=== PATIENT | female | born 1960 | race Caucasian/White ===

== ENCOUNTER → 2019-08-06 08:48 | Outpatient (CLI) | payer OTHER, MEDICAID, SELFPAY ==
[2019-08-06 10:41] LABS: Add Manual Diff / Slide Review NO; Basophils Absolute Auto 0 /uL (0-100); Basophils Percent Auto 0.8 % (0-2); Eosinophils Absolute Auto 0 /uL (0-450); Hematocrit 37.3 % (36-46); Hemoglobin 12.5 g/dL (12.0-16.0); Lymphocytes Absolute Auto 1500 /uL (1100-4500); Mean Corpuscular HGB Conc 33.6 % (30-36); Mean Corpuscular Hemoglobin 29.6 PG (26-34); Monocytes Absolute Auto 400 /uL (0-900); Monocytes Percent Auto 9.2 % (3-14); Neutrophils Absolute Auto 2700 /uL (1500-7000); Platelet Count 207 X10^3/uL (150-400); Red Blood Cell Count 4.23 X10^6/uL (4.0-5.2); Red Cell Distribution Width 13.2 % (11.6-14.8); White Blood Cell Count 4.8 X10^3/uL (4.5-11.0)
[2019-08-06 11:15] LABS: Alanine Aminotransferase 38 IU/L (<35); Albumin 4.3 g/dL (3.5-5.0); Albumin Globulin Ratio 1.3 (1.0-2.8); Alkaline Phosphatase 70 U/L (38-126); Aspartate Aminotransferase 41 IU/L (14-36); BUN Creatinine Ratio 17.9 (6-22); Bilirubin Total 0.6 mg/dL (0.2-1.3); Blood Urea Nitrogen 14 mg/dL (7-17); Calcium 9.3 mg/dL (8.4-10.2); Carbon Dioxide 26 mmol/L (22-32); Chloride 107 mmol/L (98-107); Cholesterol 221 mg/dL (140-199); Estimated Glomerular Filt Rate > 60.0 mL/min (>60); Globulin 3.3 g/dL (1.7-4.1); Glucose 95 mg/dL (70-100); HDL Cholesterol 52 mg/dL (40-60); HEMOLYSIS < 15 (0-50); LDL Cholesterol Calculated 153 mg/dL (<100); Potassium 4.2 mmol/L (3.4-5.1); Sodium 140 mmol/L (137-145); Total Protein 7.6 g/dL (6.3-8.2); Triglycerides 81 mg/dL (35-150)
[2019-08-06 11:26] LABS: Free T4, Direct Thyroxine 1.24 ng/dL (0.78-2.19)
[2019-08-06 11:39] LABS: Thyroid Stimulating Hormone 2.13 uIU/mL (0.47-4.68)
== END ==
PROVIDERS: PCP Family Medicine; Referring Provider Family Medicine; Visit Provider Family Medicine
DX: Z13.1 Encounter for screening for diabetes mellitus (principal); Z13.220 Encounter for screening for lipoid disorders; Z82.49 Family history of ischemic heart disease and other diseases of the circulatory system; E66.3 Overweight; R53.83 Other fatigue
CPT/HCPCS: 36415; 80053; 80061; 84439; 84443; 84481; 85025

== ENCOUNTER → 2019-11-19 08:35 | Outpatient (CLI) | payer OTHER, MEDICAID, SELFPAY ==
[2019-11-19 10:19] LABS: Alanine Aminotransferase 17 IU/L (<35); Albumin 4.3 g/dL (3.5-5.0); Albumin Globulin Ratio 1.5 (1.0-2.8); Alkaline Phosphatase 72 U/L (38-126); Aspartate Aminotransferase 27 IU/L (14-36); BUN Creatinine Ratio 16.7 (6-22); Bilirubin Total 0.4 mg/dL (0.2-1.3); Blood Urea Nitrogen 12 mg/dL (7-17); Calcium 9.4 mg/dL (8.4-10.2); Carbon Dioxide 24 mmol/L (22-32); Chloride 106 mmol/L (98-107); Cholesterol 194 mg/dL (140-199); Estimated Glomerular Filt Rate > 60.0 mL/min (>60); Globulin 2.8 g/dL (1.7-4.1); Glucose 95 mg/dL (70-100); HDL Cholesterol 45 mg/dL (40-60); HEMOLYSIS < 15 (0-50); LDL Cholesterol Calculated 130 mg/dL (<100); Potassium 4.3 mmol/L (3.4-5.1); Sodium 138 mmol/L (137-145); Total Protein 7.1 g/dL (6.3-8.2); Triglycerides 96 mg/dL (35-150)
[2019-11-20 16:32] LABS: Hep C Virus Ab w/Reflex Quant NEGATIVE s/c (NEGATIVE)
== END ==
PROVIDERS: PCP Family Medicine; Referring Provider Family Medicine; Visit Provider Family Medicine
DX: E78.5 Hyperlipidemia, unspecified (principal); R79.89 Other specified abnormal findings of blood chemistry
CPT/HCPCS: 36415; 80053; 80061; 86803

== ENCOUNTER → 2020-05-25 10:51 | Outpatient (CLI) | payer OTHER, MEDICAID, SELFPAY ==
[2020-05-25] MEDS: COVID-19 VACC #1, MRNA(MOD) 100 MCG/0.5 ML VIAL IM (10:56)
== END ==
PROVIDERS: PCP Family Medicine; Visit Provider Internal Medicine
DX: Z23 Encounter for immunization (principal)
CPT/HCPCS: 0011A; 91301

== ENCOUNTER → 2020-06-22 10:52 | Outpatient (CLI) | payer OTHER, MEDICAID, SELFPAY ==
[2020-06-22] MEDS: COVID-19 VACC #2, MRNA(MOD) 100 MCG/0.5 ML VIAL IM (11:01)
== END ==
PROVIDERS: PCP Family Medicine; Visit Provider Internal Medicine
DX: Z23 Encounter for immunization (principal)
CPT/HCPCS: 0012A; 91301

== ENCOUNTER → 2020-10-07 09:04 | Outpatient (CLI) | payer OTHER, MEDICAID, SELFPAY ==
[2020-10-07 10:59] LABS: Alanine Aminotransferase 14 IU/L (<35); Albumin 4.4 g/dL (3.5-5.0); Albumin Globulin Ratio 1.5 (1.0-2.8); Alkaline Phosphatase 64 U/L (38-126); Aspartate Aminotransferase 27 IU/L (14-36); BUN Creatinine Ratio 18.1 (6-22); Bilirubin Total 0.4 mg/dL (0.2-1.3); Blood Urea Nitrogen 13 mg/dL (7-17); Calcium 9.5 mg/dL (8.4-10.2); Carbon Dioxide 26 mmol/L (22-32); Chloride 106 mmol/L (98-107); Cholesterol 202 mg/dL (140-199); Estimated Glomerular Filt Rate > 60.0 mL/min (>60); Globulin 2.9 g/dL (1.7-4.1); Glucose 93 mg/dL (80-110); HDL Cholesterol 66 mg/dL (40-60); HEMOLYSIS 19 (0-50); LDL Cholesterol Calculated 120 mg/dL (<100); Potassium 4.6 mmol/L (3.4-5.1); Sodium 140 mmol/L (137-145); Total Protein 7.3 g/dL (6.3-8.2); Triglycerides 78 mg/dL (35-150)
[2020-10-07 11:55] LABS: TSH w/ Reflex to FT4 0.65 uIU/mL (0.47-4.68)
== END ==
PROVIDERS: PCP Family Medicine; Referring Provider Family Medicine; Visit Provider Family Medicine
DX: E78.5 Hyperlipidemia, unspecified (principal); R79.89 Other specified abnormal findings of blood chemistry; Z13.29 Encounter for screening for other suspected endocrine disorder
CPT/HCPCS: 36415; 80053; 80061; 84443

== ENCOUNTER → 2020-10-15 10:14 | Outpatient (CLI) | payer OTHER, MEDICAID, SELFPAY ==
[2020-10-15 11:17] LABS: COVID19 -Nasal RAPID Negative (Negative)
== END ==
PROVIDERS: PCP Family Medicine; Visit Provider Surgery
DX: Z20.822 Contact with and (suspected) exposure to COVID-19 (principal)
CPT/HCPCS: 87635; C9803

== ENCOUNTER 2020-10-18 08:11 | Day surgery (SDC) | payer OTHER, MEDICAID, SELFPAY ==
[2020-10-18] VITALS (9 sets, daily range): BP systolic 109–122; BP diastolic 53–77; PULSE 66–84; RESP 12–17; TEMP 36.2–36.8; O2SAT 97–99; BMI 23.0
[2020-10-18] MEDS: LACTATED RINGERS 1,000 ML 200 ML IV (08:54)
--- NOTE | 2020-10-18 09:14 | PM.HP.1 ---
History of Present Illness History of Present Illness Date Patient Seen: 10/18/20 Time Patient Seen: 09:14 Chief complaint: SDC Narrative: The patient presents for colorectal sreening. Most recent colonoscopy was 5 years ago and significant for benign polyps. No personal or family history of colon cancer. On further history denies any recent gastrointestinal symptoms. No nausea, vomiting, abdominal pain, loss of appetite, unexplained weight loss, change in bowel habits, diarrhea, constipation, melena, hematochezia, or bright red blood per rectum. Patient History Medical History Chicken pox (~1967) Closed fracture of metatarsal of right foot (~2017) Depression History of endometrial biopsy (~12/2018) Overweight Plantar warts (~1971) Post-menopausal bleeding Surgical History H/O section (~1995) Family & Social History Family History Father History of heart disease Hypertension Loud snoring Restless leg Mother Hypertension Parkinson's disease Restless leg Brother Anal fistula Hypertension Sister Prediabetes Grandfather History of heart attack History of heart disease Hypertension Grandmother Suicide Grandfather History of heart attack Grandmother Breast cancer Family/Other Loud snoring Insomnia Obesity Hypertension Depression Anxiety Alcohol abuse Social History: household members family Tobacco & Substance use: Smoking Status Never smoker alcohol intake current alcohol intake frequency holiday/special occasion Substance Use Type does not use Meds Home Medications and Allergies Home Medications Medication Instructions Recorded Confirmed Type biotin 10,000 mcg disintegrating 10,000 mcg PO DAILY 09/11/19 10/18/20 History tablet hyaluronic acid PO 09/11/19 10/04/20 History mecobalamin (vitamin B12) 1,000 1,000 mcg PO DAILY 09/11/19 10/04/20 History mcg chewable tablet alprazolam 0.5 mg tablet 0.5 mg PO TID PRN #15 tab 11/26/19 10/18/20 Rx trazodone 50 mg tablet See Rx Instructions .ROUTE 09/10/20 10/18/20 Rx .COMPLEX #60 tab Allergies Allergy/AdvReac Type Severity Reaction Status Date / Time tetracycline AdvReac Intermediate Nausea Verified 10/18/20 08:29 Review of Systems Review of Systems ROS: Yes All systems reviewed with the patient and are negative except as otherwise documented Exam Vital Signs (past 8 hours): - 10/18/20 08:38 Temperature 97.2 F L Pulse Rate 66 Respiratory Rate 14 Blood Pressure 122/77 Pulse Oximetry 98 Oxygen Delivery Method Room Air Narrative Exam Narrative: GENERAL-well developed adult female, no acute distress HEENT-no scleral icterus, hearing intact NECK-no JVD, trachea midline CVS- regular rate, no peripheral edema RESP-unlabored respiratory effort, no audible wheezing GI-soft, nontender nondistended MSK-no cyanosis or clubbing, extremities without deformity SKIN-warm, dry NEURO-alert and oriented, no focal deficits PYSCH-Appropriate mood and affect Assessment & Plan Assessment & Plan narrative: The patient requires colorectal screening and colonoscopy is recommended. Technical details were discussed. Risks, benefits, alternatives explained. Risks including but not limited to myocardial infarction, aspiration, bleeding, pain, missed lesion, incomplete examination, need for further radiographic studies, colonic perforation, and need for major abdominal surgery were discussed. All questions were answered to their satisfaction, and they are in agreement with this plan.
[2020-10-18] MEDS: fentaNYL 250 MCG/5 ML INJ IV (09:29)
[2020-10-18] MEDS: MIDAZOLAM 5 MG/5 ML VIAL IV (09:29)
--- NOTE | 2020-10-18 09:47 | PM.OP.ENDO ---
Operative Date/Time/Diagnoses Date of procedure: 10/18/20 Time of procedure: 09:47 Pre-op diagnosis: Personal history of colonic polyps Post-op diagnosis: same Procedure & Clinicians Study performed: Colonoscopy Same procedure as scheduled: Yes Indications: Personal history of colonic polyps Surgeon: Dk Arias Procedure Notes Procedure in detail: Medications: Conscious sedation using 7mg IV midazolam and 200mcg IV of fentanyl The history and physical was performed/updated and the patient is ASA class is 2. The procedure was discussed in detail with the patient. Potential risks complications including infection, bleeding, missed diagnosis, perforation, need for surgery, and were explained. Their questions were answered and informed consent was obtained. Patient was brought to the procedure room and placed standard monitoring equipment. The patient's vital signs were monitored continuously throughout the entire procedure. Prior to starting time-out was performed. The patient was placed in the left lateral recumbent position. Procedural sedation was administered. Examination began with a thorough inspection of the perianal area there was no evidence of fissures, fistulae, external hemorrhoids or cutaneous malignancy. The colonoscopy scope was then placed into the anal canal and was advanced to the cecum, which was identified by the ileocecal valve, the appendiceal orifice and the confluence of the taenia. The scope was then slowly withdrawn examining colon thoroughly in all directions, irrigating it of any residual stool. 1. No masses or polyps 2. Grade 2 internal hemorrhoids The patient tolerated the procedure well. They will be discharged once criteria are met. The prep was of good/excellent quality. The withdrawl time was 6 minutes. The sedation time was 25 minutes. Specimen(s): none sent Complications: none Impression: Normal colonoscopy Post-procedure Recommendations: Colonscopy in 10 years Disposition: same day surgery
[2020-10-18] MEDS: ONDANSETRON 4 MG ODT SL (10:47)
--- NOTE | 2020-10-18 10:51 | SUR.PHASEII ---
Pt feeling some nausea prior to dc. Pt given cool cloth and order obtained for zofran odt by Dr Arias States feeling better. Ambulatory to wheelchair without difficulty and dc with tech escorting to family waiting at er entrance.
== END 2020-10-18 10:50 | disposition home or self-care (01) ==
PROVIDERS: PCP Family Medicine; Referring Provider Surgery; Visit Provider Surgery
PROC: 0DJD8ZZ Inspection of Lower Intestinal Tract, Via Natural or Artificial Opening Endoscopic (ICD-10-PCS; CPT 45378; principal; 2020-10-18 09:15)
DX: Z12.11 Encounter for screening for malignant neoplasm of colon (principal); Z86.010 Personal history of colon polyps; K64.1 Second degree hemorrhoids
CPT/HCPCS: 45378; 99152; J2250; J3010

== ENCOUNTER → 2020-12-01 14:50 | Outpatient (CLI) | payer OTHER, MEDICAID, SELFPAY ==
--- NOTE | 2020-12-01 14:51 | DI.MG.S_ITS ---
BILATERAL DIGITAL SCREENING MAMMOGRAM 3D/2D WITH CAD: 12/01/2020 CLINICAL: Routine screening. Comparison is made to exams dated: 01/04/2017 mammogram, 12/20/2015 mammogram, and 12/14/2014 mammogram - outside location. There are scattered fibroglandular elements in both breasts. Current study was also evaluated with a Computer Aided Detection (CAD) system. No significant masses, calcifications, or other findings are seen in either breast. There has been no significant interval change. IMPRESSION: NEGATIVE There is no mammographic evidence of malignancy. A 1 year screening mammogram is recommended. This exam was interpreted at Station ID: [id number]. NOTE: For mammograms, a report in lay terms will be sent to the patient. Approximately 15% of breast malignancies will not be visualized mammographically. In the management of a palpable breast mass, a negative mammogram must not discourage biopsy of a clinically suspicious lesion. Electronically Signed By: Mike Adamson M.D. at/oren:12/01/2020 15:24:00 letter sent: Normal Exam ACR BI-RADS Category 1: Negative 3341F
== END ==
PROVIDERS: PCP Family Medicine; Referring Provider Family Medicine; Visit Provider Family Medicine
DX: Z12.31 Encounter for screening mammogram for malignant neoplasm of breast (principal)
CPT/HCPCS: 77063; 77067

== ENCOUNTER → 2021-05-02 17:13 | Outpatient (CLI) | payer OTHER, MEDICAID, SELFPAY ==
[2021-05-02 19:54] LABS: COVID19 -Nasal RAPID Negative (Negative)
== END ==
PROVIDERS: PCP Family Medicine; Visit Provider Family Medicine
DX: Z20.822 Contact with and (suspected) exposure to COVID-19 (principal)
CPT/HCPCS: 87635

== ENCOUNTER 2021-10-12 08:13 | Outpatient (RCR) | payer OTHER, MEDICAID, SELFPAY ==
--- NOTE | 2021-10-12 15:10 | OT.OP.EVAL ---
Visit Care Team Role Provider Type Rohini Kaminski MD Attending Provider Physician Family Provider Primary Care Provider Referring Provider Specialty: Family Practice Address: [address] [place] [address], [address] Phone: Fax: Email: [email or web address] Initial Evaluation OT Outpatient Adult Evaluation Start: 10/12/21 14:47 Freq: Status: Active Protocol: Document 10/12/21 14:47 AMS (Rec: 10/12/21 15:09 AMS [id number]) General Information Visit Start Time 08:30 Visit Stop Time 09:15 Total Visit Minutes 45 Visit Number 1 Insurance Information [employer]; MAX 24 PT/OT combo Treatment Setting Outpatient Care Note Type Initial Evaluation Referring Physician Rohini Kaminski MD Reason for Referral B CTS Identification Confirmed Yes Identification Confirmed By Patient Goals Treatment HEP/Education. Assessment/Plan Treatment Assessment Patient is a 61 year-old right hand dominant female referred to outpatient OT by PCP secondary to bilateral CTS. Medical history is significant for back and neck pain. 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 Ellen reports writing 2 to 4 hours per day utilizing personal laptop (no separate keyboard; use of touch pad for mouse work) while seated in various locations around the home (in bed, seated at couch and/or in chairs). She reports taking anti inflammatory medications if 'pain is really bad'. She denied consistent use of heat, ice and/or contrast baths. She indicated 4 to 5 out of 10 on the Pain Scale relative to distal R UE. She obtained a QuickDASH UE Outcome Measure Score = 22.73 and a QuickDASH Work Module Score = 56.25. She invested in personal [id number] wrist brace that she has been wearing primarily when writing . Denial of wearing of splint/ brace at night. Denial of waking up from pain/discomfort /symptoms. (+) Tinel sign R; report of tingling in fingers of R hand only. No report of symptoms in the left hand. Bilateral wrist AROM WNL. (+) tenderness palpated R CMC > L; (+) bilateral thumb adductor tightness (R > L). Focus of evaluation and treatment on education and HEP development; instructed in wrist stretches (w/ focus on wrist/digit flexors stretch), tendon glides, median nerve glide, self-myofascial release (thumb adductor/carpal ligament). Visual instructions provided for self-myofascial releases and tendon glides. Education/ discussion re: modifications to laptop set-up (including use of slant surface), positioning of wrist/hand at night, use of heat/cold packs, importance of breaks and completing stretches/exercises . Ellen denied need for additional treatment sessions. Thus, recommend d/c at this time. Patient Recommendations Discharge from Occupational Therapy
== END 2021-10-13 09:46 ==
LOC: OT 08:13
PROVIDERS: Family Provider Family Medicine; PCP Family Medicine; Referring Provider Family Medicine; Visit Provider Family Medicine
DX: G56.03 Carpal tunnel syndrome, bilateral upper limbs (principal)
CPT/HCPCS: 97110; 97165

== ENCOUNTER → 2021-12-19 11:46 | Outpatient (CLI) | payer OTHER, MEDICAID, SELFPAY ==
--- NOTE | 2021-12-19 11:49 | DI.MG.S_ITS ---
BILATERAL DIGITAL SCREENING MAMMOGRAM 3D/2D WITH CAD: 12/19/2021 CLINICAL: Routine screening. Family history of breast cancer. Comparison is made to exams dated: 12/01/2020 mammogram - [facility] and 01/04/2017 mammogram - outside location. There are scattered fibroglandular elements in both breasts. Current study was also evaluated with a Computer Aided Detection (CAD) system. No significant masses, calcifications, or other findings are seen in either breast. There has been no significant interval change. IMPRESSION: NEGATIVE There is no mammographic evidence of malignancy. A 1 year screening mammogram is recommended. Based on the Tyrer Cuzick model (a risk assessment model) the patient's lifetime risk is 10.6% and her 10 year risk is 4.5%. According to the ACR, ACS, and NCCN guidelines, an annual breast MRI exam along with mammogram is recommended if the patient's lifetime risk is 20% or greater. This exam was interpreted at Station ID: [id number]. NOTE: For mammograms, a report in lay terms will be sent to the patient. Approximately 15% of breast malignancies will not be visualized mammographically. In the management of a palpable breast mass, a negative mammogram must not discourage biopsy of a clinically suspicious lesion. Electronically Signed By: Coleman somers/oren:12/19/2021 15:40:39 letter sent: Normal Exam ACR BI-RADS Category 1: Negative 3341F
== END ==
PROVIDERS: Family Provider Family Medicine; PCP Pediatrics; Referring Provider Pediatrics; Visit Provider Pediatrics
DX: Z12.31 Encounter for screening mammogram for malignant neoplasm of breast (principal); Z80.3 Family history of malignant neoplasm of breast
CPT/HCPCS: 77063; 77067

== ENCOUNTER → 2022-03-18 10:56 | Outpatient (CLI) | payer OTHER, MEDICAID, SELFPAY | PROVIDERS: Family Provider Family Medicine; PCP Pediatrics; Visit Provider Registered Nurse | DX: N39.0 Urinary tract infection, site not specified (principal) | CPT/HCPCS: 81002; 87077; 87086; 87186 ==

== ENCOUNTER → 2022-05-29 08:52 | Outpatient (CLI) | payer OTHER, MEDICAID, SELFPAY ==
[2022-05-29 10:13] LABS: Add Manual Diff / Slide Review NO; Basophils Absolute Auto 0 /uL (0-100); Basophils Percent Auto 0.9 % (0-2); Eosinophils Absolute Auto 0 /uL (0-450); Eosinophils Percent Auto 0.6 % (2-4); Hematocrit 39.9 % (36-46); Hemoglobin 13.1 g/dL (12.0-16.0); Lymphocytes Absolute Auto 1500 /uL (1100-4500); Lymphocytes Percent Auto 32.5 % (25-40); Mean Corpuscular HGB Conc 32.9 % (30-36); Mean Corpuscular Hemoglobin 29.4 PG (26-34); Mean Corpuscular Volume 89.6 fL (80-100); Monocytes Absolute Auto 400 /uL (0-900); Monocytes Percent Auto 9.2 % (3-14); Neutrophils Absolute Auto 2700 /uL (1500-7000); Neutrophils Percent Auto 56.8 % (50-75); Platelet Count 225 X10^3/uL (150-400); Red Blood Cell Count 4.45 X10^6/uL (4.0-5.2); Red Cell Distribution Width 13.8 % (11.6-14.8); White Blood Cell Count 4.7 X10^3/uL (4.5-11.0)
[2022-05-29 10:23] LABS: Hemoglobin A1C% w Est Avg Glu 5.4 % (4.0-6.0)
[2022-05-29 10:54] LABS: Alanine Aminotransferase 18 IU/L (<35); Albumin 4.3 g/dL (3.5-5.0); Albumin Globulin Ratio 1.5 (1.0-2.8); Alkaline Phosphatase 60 U/L (38-126); Aspartate Aminotransferase 25 IU/L (14-36); BUN Creatinine Ratio 15.7 (6-22); Bilirubin Total 0.4 mg/dL (0.2-1.3); Blood Urea Nitrogen 11 mg/dL (7-17); Calcium 9.2 mg/dL (8.4-10.2); Carbon Dioxide 28 mmol/L (22-32); Chloride 104 mmol/L (98-107); Cholesterol 204 mg/dL (140-199); Estimated Glomerular Filt Rate > 60 mL/min (>60); Globulin 2.8 g/dL (1.7-4.1); Glucose 83 mg/dL (80-110); HDL Cholesterol 67 mg/dL (40-60); HEMOLYSIS 19 (0-50); LDL Cholesterol Calculated 108 mg/dL (<100); Potassium 4.2 mmol/L (3.4-5.1); Sodium 137 mmol/L (137-145); Total Protein 7.1 g/dL (6.3-8.2); Triglycerides 144 mg/dL (35-150)
== END ==
PROVIDERS: Family Provider Family Medicine; PCP Family Medicine; Referring Provider Family Medicine; Visit Provider Family Medicine
DX: E78.5 Hyperlipidemia, unspecified (principal); H02.409 Unspecified ptosis of unspecified eyelid; Z13.1 Encounter for screening for diabetes mellitus; Z13.6 Encounter for screening for cardiovascular disorders
CPT/HCPCS: 36415; 80053; 80061; 83036; 84443; 85025

== ENCOUNTER → 2022-08-04 11:02 | Outpatient (CLI) | payer OTHER, MEDICAID, SELFPAY | PROVIDERS: Family Provider Family Medicine; PCP Family Medicine; Visit Provider Nurse Practitioner Family | DX: R30.0 Dysuria (principal) | CPT/HCPCS: 81002; 87077; 87086; 87186; 87210 ==

== ENCOUNTER → 2023-01-25 15:46 | Outpatient (CLI) | payer OTHER, MEDICAID, SELFPAY ==
--- NOTE | 2023-01-25 | DI.MG.S_ITS ---
BILATERAL DIGITAL SCREENING MAMMOGRAM 3D/2D WITH CAD: 01/25/2023 CLINICAL: Routine screening. Family history of breast cancer. Comparison is made to exams dated: 12/19/2021 mammogram, 12/01/2020 mammogram - [facility], and 01/04/2017 mammogram - outside location. There are scattered areas of fibroglandular density in both breasts (category b / 25%-50% glandular tissue). Current study was also evaluated with a Computer Aided Detection (CAD) system. No significant masses, calcifications, or other findings are seen in either breast. There has been no significant interval change. IMPRESSION: NEGATIVE There is no mammographic evidence of malignancy. A 1 year screening mammogram is recommended. Based on the Tyrer Cuzick model (a risk assessment model) the patient's lifetime risk is 10.4% and her 10 year risk is 4.5%. According to the ACR, ACS, and NCCN guidelines, an annual breast MRI exam along with mammogram is recommended if the patient's lifetime risk is 20% or greater. This exam was interpreted at Station ID: [id number]. NOTE: For mammograms, a report in lay terms will be sent to the patient. Approximately 15% of breast malignancies will not be visualized mammographically. In the management of a palpable breast mass, a negative mammogram must not discourage biopsy of a clinically suspicious lesion. Electronically Signed By: Edward zeng/oren:01/26/2023 08:14:53 letter sent: Normal Exam ACR BI-RADS Category 1: Negative 3341F
== END ==
PROVIDERS: Family Provider Family Medicine; PCP Family Medicine; Referring Provider Family Medicine; Visit Provider Family Medicine
DX: Z12.31 Encounter for screening mammogram for malignant neoplasm of breast (principal); Z80.3 Family history of malignant neoplasm of breast
CPT/HCPCS: 77063; 77067

== ENCOUNTER → 2023-05-18 11:47 | Outpatient (CLI) | payer OTHER, MEDICAID, SELFPAY ==
[2023-05-18 13:23] LABS: Alanine Aminotransferase 15 IU/L (<35); Albumin 4.5 g/dL (3.5-5.0); Albumin Globulin Ratio 1.5 (1.0-2.8); Alkaline Phosphatase 61 U/L (38-126); Aspartate Aminotransferase 24 IU/L (14-36); BUN Creatinine Ratio 14.7 (6-22); Bilirubin Total 0.6 mg/dL (0.2-1.3); Blood Urea Nitrogen 11 mg/dL (7-17); Calcium 9.8 mg/dL (8.4-10.2); Carbon Dioxide 26 mmol/L (22-32); Chloride 102 mmol/L (98-107); Cholesterol 191 mg/dL (140-199); Estimated Glomerular Filt Rate > 60 mL/min (>60); Glucose 81 mg/dL (80-110); HDL Cholesterol 60 mg/dL (40-60); HEMOLYSIS < 15 (0-50); LDL Cholesterol Calculated 116 mg/dL (<100); Potassium 4.2 mmol/L (3.4-5.1); Sodium 136 mmol/L (137-145); Total Protein 7.5 g/dL (6.3-8.2); Triglycerides 77 mg/dL (35-150)
[2023-05-21 15:55] LABS: HIV 1 & 2 Ab/Ag 4th Gen Combo NEGATIVE (NEGATIVE)
== END ==
PROVIDERS: Family Provider Family Medicine; PCP Family Medicine; Referring Provider Family Medicine; Visit Provider Family Medicine
DX: E78.5 Hyperlipidemia, unspecified (principal); Z11.4 Encounter for screening for human immunodeficiency virus [HIV]
CPT/HCPCS: 36415; 80053; 80061; 87389

== ENCOUNTER → 2023-06-05 13:34 | Outpatient (CLI) | payer OTHER, MEDICAID, SELFPAY ==
[2023-06-05 15:58] LABS: Thyroid Stimulating Hormone 1.01 uIU/mL (0.47-4.68)
== END ==
PROVIDERS: Family Provider Family Medicine; PCP Family Medicine; Referring Provider Family Medicine; Visit Provider Family Medicine
DX: R79.89 Other specified abnormal findings of blood chemistry (principal)
CPT/HCPCS: 36415; 84443

== ENCOUNTER 2024-01-23 09:46 | Emergency (ER) | payer OTHER, MEDICAID, SELFPAY ==
[2024-01-23 09:48] VITALS: BP 174/87; PULSE 74; RESP 30; TEMP 36.6; O2SAT 99; BMI 25.3
--- NOTE | 2024-01-23 09:48 | EKG_ITS ---
[address] [address] Test Date: 2024-01-23 Pat Name: Ramandeep Agarwal Department: [facility] Room: Gender: Female [employer] Teacher: LEXY : 1960 Requested By: Order Number: [id number] Reading MD: Edis Moise MD Measurements Intervals [place] Rate: 71 P: 70 GA: 136 QRS: 72 QRSD: 78 T: 69 QT: 378 QTc: 410 Interpretive Statements Normal sinus rhythm Electronically Signed On 01-24-2024 8:25:04 PDT by Edis Moise MD
[2024-01-23 09:51] VITALS: BP 174/87; PULSE 80; RESP 27; O2SAT 97
[2024-01-23 10:00] VITALS: BP 150/78; PULSE 68; RESP 25; O2SAT 100
--- NOTE | 2024-01-23 10:09 | ED.CHESTPAIN ---
HPI - Chest Pain General Chief Complaint: Chest Pain Stated Complaint: SOB/ something going on with her Heart Time Seen by Provider: 01/23/24 10:03 Source: patient Mode of arrival: Family Vehicle Limitations: no limitations History of Present Illness HPI narrative: Otherwise healthy 63-year-old woman and a routine visit with her primary care physician and had received bilateral cortisone injections to both hips was feeling well but is should be in to walk out of the clinic noticed a ?whooshing? feeling in her heart that she states did not feel like a palpitation. [place] a bit lightheaded and generally unwell, she went to sit in her car for just a moment the feeling worsened and she decided to come to the ER for further evaluation. At this point she is feeling somewhat better she is lying supine. She had a cup of coffee this morning but no other liquids or calories. No recent fevers, nausea, vomiting, chest pain, exertional dyspnea, lower extremity edema, headaches Related Data Home Medications Medication Instructions Recorded Confirmed biotin 10,000 mcg disintegrating 10,000 mcg PO DAILY 09/11/19 01/23/24 tablet hyaluronic acid PO 09/11/19 01/23/24 mecobalamin (vitamin B12) 1,000 1,000 mcg PO DAILY 09/11/19 01/23/24 mcg chewable tablet viatmin d3 PO 05/29/22 01/23/24 minoxidil 2.5 mg tablet 1.25 mg PO DAILY 08/03/23 01/23/24 Previous Rx's Medication Instructions Recorded alprazolam 0.5 mg tablet 0.5 mg PO TID PRN anxiety #30 tabs 05/08/23 bupropion HCl 150 mg 24 hr tablet, 150 mg PO DAILY #90 tabs 05/08/23 extended release semaglutide 1 mg/dose (4 mg/3 mL) See Rx Instructions SUBCUT QWEEK 05/08/23 subcutaneous pen injector #3 mL estradiol 0.01% (0.1 mg/gram) See Rx Instructions vaginal 08/03/23 vaginal cream (Estrace) .COMPLEX #42.5 grams trazodone 50 mg tablet See Rx Instructions .Route 12/10/23 .COMPLEX #90 tabs Allergies Allergy/AdvReac Type Severity Reaction Status Date / Time tetracycline AdvReac Intermediate Nausea Verified 01/23/24 09:10 Review of Systems Review of Systems Narrative: Pertinent positive and negative findings as per HPI Patient History Medical History Hyperlipidemia Overweight Elevated LFTs Closed fracture of metatarsal of right foot (~2017) Plantar warts (~1971) Chicken pox (~1967) Depression Post-menopausal bleeding History of endometrial biopsy (~12/2018) Surgical History H/O section (~1995) Family History Father History of heart disease Hypertension Loud snoring Restless leg Mother Hypertension Parkinson's disease Restless leg Brother Anal fistula Hypertension Sister Prediabetes Grandfather History of heart attack History of heart disease Hypertension Grandmother Suicide Grandfather History of heart attack Grandmother Breast cancer Family/Other Loud snoring Insomnia Obesity Hypertension Depression Anxiety Alcohol abuse Social History household members: family Smoking Status: Never smoker alcohol intake: current Smoking Status: Never smoker alcohol intake frequency: holidays/special occasions only Substance Use Type: does not use Exam Initial Vital Signs Initial Vital Signs: Vital Signs Temperature 97.9 F 01/23/24 09:48 Pulse Rate 74 01/23/24 09:48 Respiratory Rate 30 H 01/23/24 09:48 Blood Pressure 174/87 H 01/23/24 09:48 Pulse Oximetry 99 01/23/24 09:48 Oxygen Delivery Method Room Air 01/23/24 09:48 General: Healthy appearing, in no acute distress. Able to give a complete and coherent history. Well-nourished well-developed HEENT: Moist mucous membranes, normal sclera with reactive pupils, Neck: No JVD, supple Respiratory: Lungs are clear to auscultation, no wheezing no rales no rhonchi. Full and symmetrical air movement Cardiac: Regular rate and rhythm no murmurs no bruits Abdomen: Soft, nontender, good bowel tones, no flank pain Skin: Warm and dry, no rashes Neurologic: Grossly neurologically intact with no obvious asymmetries or abnormalities Extremities: No trauma, well perfused Psych: Cooperative, appropriate insight and affect Course Orders Ordered: ED Orders 01/23/24 09:48 EKG-12 Lead Stat 01/23/24 10:12 Complete Blood Count AUTO DIFF Stat Comprehensive Metabolic Panel Stat Lipase Stat Magnesium Stat NT-proBNP (BNP-Adult 18+) Stat Troponin & CK Cardiac Panel Stat 01/23/24 10:17 XR chest 1V Stat Discontinued Medications Sodium Chloride (Normal Saline 0.9%) 1,000 mls @ 1,000 mls/hr IV BOLUS ONE Stop: 01/23/24 11:16 Last Admin: 01/23/24 10:50 Dose: 1,000 mls/hr Documented By: RIVAS Vital Signs Vital signs: Vital Signs - 8 hr 01/23/24 09:48 01/23/24 09:51 01/23/24 10:00 Temperature 97.9 F Pulse Rate 74 80 68 Respiratory Rate 30 H 27 H 25 H Blood Pressure 174/87 H 174/87 H 150/78 H Pulse Oximetry 99 97 100 Oxygen Delivery Method Room Air 01/23/24 10:30 01/23/24 11:00 Temperature Pulse Rate 75 75 Respiratory Rate 20 20 Blood Pressure 145/70 H 131/72 Pulse Oximetry 100 98 Oxygen Delivery Method Room Air MDM - Chest Pain Lab Data 01/23/24 10:12 01/23/24 10:12 Labs: Lab Results 01/23/24 Range/Units 10:12 WBC 6.1 (4.5-11.0) X10^3/uL RBC 4.45 (4.0-5.2) X10^6/uL Hgb 13.3 (12.0-16.0) g/dL Hct 39.0 (36-46) % MCV 87.8 (80-100) fL MCH 29.9 (26-34) PG MCHC 34.0 (30-36) % RDW 12.9 (11.6-14.8) % Plt Count 240 (150-400) X10^3/uL Neut % (Auto) 59.9 (50-75) % Lymph % (Auto) 27.3 (25-40) % [place] % (Auto) 10.5 (3-14) % Eos % (Auto) 1.1 L (2-4) % Baso % (Auto) 1.2 (0-2) % Neut # (Auto) 3700 (7697-4891) /uL Lymph # (Auto) 1700 (2330-1708) /uL [place] # (Auto) 600 (0-900) /uL Eos # (Auto) 100 (0-450) /uL Baso # (Auto) 100 (0-100) /uL Sodium 136 L (137-145) mmol/L Potassium 4.6 (3.4-5.1) mmol/L Chloride 104 (98-107) mmol/L Carbon Dioxide 26 (22-32) mmol/L BUN 18 H (7-17) mg/dL Creatinine 0.76 (0.52-1.04) mg/dL Estimated GFR > 60 (>60) mL/min BUN/Creatinine Ratio 23.7 H (6-22) Glucose 92 (80-110) mg/dL Calcium 9.6 (8.4-10.2) mg/dL Magnesium 2.1 (1.6-2.3) mg/dL Total Bilirubin 0.8 (0.2-1.3) mg/dL AST 38 H (14-36) IU/L ALT 25 (<35) IU/L Alkaline Phosphatase 56 (38-126) U/L Total Creatine Kinase 61 (30-135) U/L Troponin I < 0.012 (0.01-0.034) ng/mL NT-Pro-B Natriuret Pep 61 (<125) pg/mL Total Protein 7.8 (6.3-8.2) g/dL Albumin 4.4 (3.5-5.0) g/dL Globulin 3.4 (1.7-4.1) g/dL Albumin/Globulin Ratio 1.3 (1.0-2.8) Lipase 126 (23-300) U/L MDM Narrative Medical decision making narrative: CC: Unsteady, whishing sensation in her heart shortly after bilateral cortisone injection in her hips Data collected from: patient Social determinants of health that may influence the patients condition: Medical records reviewed: Notes from visit prior to coming to the ER reviewed. She received Kenalog without epinephrine Differential considered: Vasovagal syncope, palpitations, cardiac event, viral syndrome Exam documented above, pertinent findings include: Exam is entirely benign Lab Test results independently reviewed as above. Pertinent findings: CBC is unremarkable Chemistries are reassuring Troponin is undetectable Independently reviewed EKG: Sinus rhythm at a rate of 71. No acute ischemic changes Imaging studies independently reviewed: Chest x-ray is unremarkable Treatments: A L of fluid Discussion: Patient is feeling much better. I suspect that the woozy/wooshing sensation that she experienced was moderate vasovagal response after the bilateral steroid hip injections. Labs are reassuring no evidence of acute coronary disease she is feeling better after a L of fluid. At this point there was no indication for additional imaging blood work or hospital admission. Questions are answered and she is safe for discharge Discharge Plan Departure Patient Disposition: Home Clinical Impression: Vasovagal near syncope Instructions: DI for Syncope in Adults (Fainting) Activity Restrictions/Additional Instructions: Thank you for coming in today Your blood work was entirely reassuring. There was no evidence of infection, kidney problems, electrolyte abnormalities, abnormal heart rhythms or heart attack like syndromes. I suspect the sensation that you experienced is called a vasovagal response and related to the injections that you received. This is temporary, not a sign of anything more sinister or something to worry about in the future and is completely self-limited. I would encourage you to go home and have some lunch and enjoy the rest of your day. If you find that you are getting worse or develop any new symptoms, please feel free to return to the emergency department for further evaluation. Prescriptions: No Action biotin 10,000 mcg tablet,disintegrating 10,000 mcg PO DAILY mecobalamin (vitamin B12) 1,000 mcg tablet,chewable 1,000 mcg PO DAILY hyaluronic acid PO trazodone 50 mg tablet See Rx Instructions .ROUTE .COMPLEX Qty: 90 11RF Dose Instruction: TAKE 1 TO 2 TABLETS AT BEDTIME Rx Instructions: TAKE 1 TO 2 TABLETS AT BEDTIME alprazolam 0.5 mg tablet 0.5 mg PO TID PRN (Reason: anxiety) Qty: 30 0RF bupropion HCl 150 mg tablet extended release 24 hr 150 mg PO DAILY Qty: 90 3RF semaglutide 1 mg/dose (4 mg/3 mL) pen injector See Rx Instructions SUBCUT QWEEK Qty: 3 0RF Rx Instructions: 60 units weekly through [facility] viatmin d3 PO minoxidil 2.5 mg tablet 1.25 mg PO DAILY estradiol [Estrace] 0.01 % (0.1 mg/gram) cream See Rx Instructions vaginal .COMPLEX Qty: 42.5 11RF Rx Instructions: 500 mg intravaginally for 2 weeks, then 500 mg twice per week intravaginally for 1 to 2 weeks, then gradually reduce to 1/2 the initial dose twice per week. Referrals: Tino Day DO [Primary Care Provider] - Stand Alone Forms: Patient Portal/API
--- NOTE | 2024-01-23 10:17 | DI.RAD.S_ITS ---
PROCEDURE: XR CHEST 1V INDICATIONS: chest pain TECHNIQUE: One view of the chest was acquired. COMPARISON: None. FINDINGS: Surgical changes and devices: None. Lungs and pleura: Lungs are clear. No pleural effusions or pneumothorax. Mediastinum: Mediastinal contours appear normal. Heart size is normal. Bones and chest wall: No suspicious bony lesions. Overlying soft tissues appear unremarkable. IMPRESSION: No acute cardiopulmonary abnormality is seen. Dictated by: Juan Diego Otto M.D. on 01/23/2024 at 10:41 Approved by: Juan Dieog Otto M.D. on 01/23/2024 at 10:41
[2024-01-23 10:24] LABS: Add Manual Diff / Slide Review NO; Basophils Absolute Auto 100 /uL (0-100); Basophils Percent Auto 1.2 % (0-2); Eosinophils Absolute Auto 100 /uL (0-450); Eosinophils Percent Auto 1.1 % (2-4); Hemoglobin 13.3 g/dL (12.0-16.0); Lymphocytes Absolute Auto 1700 /uL (1100-4500); Lymphocytes Percent Auto 27.3 % (25-40); Mean Corpuscular Hemoglobin 29.9 PG (26-34); Mean Corpuscular Volume 87.8 fL (80-100); Monocytes Absolute Auto 600 /uL (0-900); Monocytes Percent Auto 10.5 % (3-14); Neutrophils Absolute Auto 3700 /uL (1500-7000); Neutrophils Percent Auto 59.9 % (50-75); Platelet Count 240 X10^3/uL (150-400); Red Blood Cell Count 4.45 X10^6/uL (4.0-5.2); Red Cell Distribution Width 12.9 % (11.6-14.8); White Blood Cell Count 6.1 X10^3/uL (4.5-11.0)
[2024-01-23 10:30] VITALS: BP 145/70; PULSE 75; RESP 20; O2SAT 100
[2024-01-23 10:30] LABS: Alanine Aminotransferase 25 IU/L (<35); Albumin 4.4 g/dL (3.5-5.0); Albumin Globulin Ratio 1.3 (1.0-2.8); Alkaline Phosphatase 56 U/L (38-126); Aspartate Aminotransferase 38 IU/L (14-36); BUN Creatinine Ratio 23.7 (6-22); Bilirubin Total 0.8 mg/dL (0.2-1.3); Blood Urea Nitrogen 18 mg/dL (7-17); Calcium 9.6 mg/dL (8.4-10.2); Carbon Dioxide 26 mmol/L (22-32); Chloride 104 mmol/L (98-107); Creatine Kinase 61 U/L (30-135); Estimated Glomerular Filt Rate > 60 mL/min (>60); Globulin 3.4 g/dL (1.7-4.1); Glucose 92 mg/dL (80-110); Lipase 126 U/L (23-300); Magnesium 2.1 mg/dL (1.6-2.3); Potassium 4.6 mmol/L (3.4-5.1); Sodium 136 mmol/L (137-145); Total Protein 7.8 g/dL (6.3-8.2)
[2024-01-23 10:31] LABS: HEMOLYSIS 112 (0-50)
[2024-01-23 10:42] LABS: NT-proBNP (BNP-Adult 18+) 61 pg/mL (<125); Troponin I < 0.012 ng/mL (0.01-0.034)
[2024-01-23] MEDS: SODIUM CHLORIDE 0.9% 1,000 ML 1000 ML IV (10:50)
[2024-01-23 11:00] VITALS: BP 131/72; PULSE 75; RESP 20; O2SAT 98
[2024-01-23 11:30] VITALS: BP 138/69; PULSE 79; RESP 22; O2SAT 98
== END 2024-01-23 11:54 | disposition home or self-care (01) ==
PROVIDERS: Emergency Provider Emergency Medicine; Family Provider Family Medicine; PCP Family Medicine
DX: R55 Syncope and collapse (principal); R07.9 Chest pain, unspecified; R42 Dizziness and giddiness
CPT/HCPCS: 36415; 71045; 80053; 82550; 83690; 83735; 83880; 84484; 85025; 93005; 93010; 96360; 99284

== ENCOUNTER → 2024-01-29 15:58 | Outpatient (CLI) | payer OTHER, MEDICAID, SELFPAY ==
--- NOTE | 2024-01-29 15:58 | DI.MG.S_ITS ---
BILATERAL DIGITAL SCREENING MAMMOGRAM 3D/2D WITH CAD: 01/29/2024 CLINICAL: Routine screening. Comparison is made to exams dated: 01/25/2023 mammogram, 12/19/2021 mammogram, and 12/01/2020 mammogram - [facility]. There are scattered areas of fibroglandular density (category b / 25%-50% glandular tissue). Current study was also evaluated with a Computer Aided Detection (CAD) system. No significant masses, calcifications, or other findings are seen in either breast. There has been no significant interval change. IMPRESSION: NEGATIVE There is no mammographic evidence of malignancy. A 1 year screening mammogram is recommended. Based on the Tyrer Cuzick model (a risk assessment model) the patient's lifetime risk is 10.1% and her 10 year risk is 4.5%. According to the ACR, ACS, and NCCN guidelines, an annual breast MRI exam along with mammogram is recommended if the patient's lifetime risk is 20% or greater. This exam was interpreted at Station ID: [id number]. NOTE: For mammograms, a report in lay terms will be sent to the patient. Approximately 15% of breast malignancies will not be visualized mammographically. In the management of a palpable breast mass, a negative mammogram must not discourage biopsy of a clinically suspicious lesion. Electronically Signed By: Isabel grewal/oren:01/30/2024 12:01:48 letter sent: Normal Exam ACR BI-RADS Category 1: Negative
== END ==
PROVIDERS: Family Provider Family Medicine; PCP Family Medicine; Referring Provider Family Medicine; Visit Provider Family Medicine
DX: Z12.31 Encounter for screening mammogram for malignant neoplasm of breast (principal)
CPT/HCPCS: 77063; 77067

== ENCOUNTER → 2024-02-25 13:16 | Outpatient (CLI) | payer OTHER, MEDICAID, SELFPAY | PROVIDERS: Family Provider Family Medicine; PCP Family Medicine; Referring Provider Family Medicine; Visit Provider Family Medicine | DX: R00.2 Palpitations (principal) | CPT/HCPCS: 93246; 93248 ==

== ENCOUNTER → 2024-06-18 10:54 | Outpatient (CLI) | payer OTHER, SELFPAY ==
--- NOTE | 2024-06-18 10:56 | DI.RAD.S_ITS ---
PROCEDURE: XR HIP W PEL IF DONE ALEX MIN 4V INDICATIONS: pain TECHNIQUE: AP pelvis with lateral view(s) of both hip(s). COMPARISON: None. FINDINGS: Bones: Left L5 transverse process is elongated and irregular. This is likely chronic and insignificant SI and hip joints: Normal in width and alignment without arthritic change Soft tissues: No soft tissue swelling, calcification or mass. IMPRESSION: Normal pelvis Dictated by: Edis Hahn M.D. on 06/19/2024 at 11:34 Approved by: Edis Hahn M.D. on 06/19/2024 at 11:35
== END ==
PROVIDERS: Family Provider Family Medicine; PCP Family Medicine; Referring Provider Family Medicine; Visit Provider Family Medicine
DX: M25.551 Pain in right hip (principal); M25.552 Pain in left hip
CPT/HCPCS: 73521

== ENCOUNTER 2024-10-29 11:30 | Outpatient (RCR) | payer OTHER, SELFPAY ==
--- NOTE | 2024-07-21 16:00 | PT.OTN ---
Current Diagnoses Pain in right hip (07/21/24) Pain in left hip (07/21/24) Physical Therapy Treatment Note PT-OP-A Visit Information Start: 07/21/24 15:56 Freq: Status: Active Protocol: Document 07/21/24 15:15 DCW (Rec: 07/21/24 16:06 DCW [id number]) Out-Patient Physical Therapy Visit Information Visit Information Visit Type Initial Evaluation Visit Start Time 15:15 Visit Stop Time 15:50 Visit Number 1 Number of PHOTOENGRAVING PRINTER Visits 0 Evaluation Information Evaluation Date 07/21/24 PT-OP-B Current Condition Start: 07/21/24 15:56 Freq: Status: Active Protocol: Document 07/21/24 15:15 DCW (Rec: 07/21/24 16:06 DCW [id number]) Current Condition History of Current Condition Onset Date Multi-year history Current Complaints Lateral hip pain, L>R History of Current Condition Pt is a 64 year old female presenting with a multi-year history of bilateral hip pain. Pt notes pain is very point specific on both hips, points to lateral hip just off Greater Tubercle. Notes that she has been getting cortisone injections for a few years, the last one being this past December, but it did not last , and she noted reduced effect compared to prior injections. Pt notes that her pain has been steadily worsening since December. Worst when attempting to sleep while on her side, but getting into/out of her car, getting up from sitting, and stairs all increase discomfort. feels like she has started walking funny to compensate. Has not found anything that helps with her pain. Prior Treatments and Tests Hip X-ray: IMPRESSION: Normal pelvis Evaristo Campos on 06/19/2024 PT-OP-C Subjective Start: 07/21/24 15:56 Freq: Status: Active Protocol: Document 07/21/24 15:15 DCW (Rec: 07/21/24 16:06 DC [id number]) OP-PT Subjective Patient Comments Patient Comments I'm still doing dance class and yoga. There are a few stretches in yoga that I avoid , but I can do most of it without pain. Patient Reported Progress Improving PT-OP-F Manual Assessment Start: 07/21/24 15:56 Freq: Status: Active Protocol: Document 07/21/24 15:15 DCW (Rec: 07/22/24 09:55 DCW [id number]) Manual Assessments Soft Tissue Assessment Soft Tissue Mobility Assessment Bilateral point-specific pain over GT Bursae, along with tenderness to palpation 3/4: wincing and withdraw along bilateral ITB Joint Mobility Assessment Joint Mobility Assessment Very good passive hip mobility bilaterally PT-OP-L Special Tests Start: 07/21/24 15:56 Freq: Status: Active Protocol: Document 07/21/24 15:15 DCW (Rec: 07/22/24 09:55 DCW [id number]) Special Tests Hip Special Tests Straight Leg Raise Test Results Negative Scour Test Test Results Negative Piriformis Test Results Negative FARHAN Test Results Negative Knee Special Tests Rock's Test Test Results Positive bilaterally PT-OP-M Strength Start: 07/21/24 15:56 Freq: Status: Active Protocol: Document 07/21/24 15:15 DCW (Rec: 07/22/24 09:55 DCW [id number]) Hip Strength Hip Manual Muscle Testing Right Flexion (L2) 5 Normal Abduction 4- Good- Adduction 5 Normal External Rotation 5 Normal Internal Rotation 4 Good Comments Pain with resisted abduction and internal rotation Left Flexion (L2) 5 Normal Abduction 3+ Fair+ Adduction 5 Normal External Rotation 5 Normal Internal Rotation 4- Good- Comments Pain with resisted abduction and internal rotation PT-OP-Q Treatments Start: 07/21/24 15:56 Freq: Status: Active Protocol: Document 07/21/24 15:15 DCW (Rec: 07/21/24 16:06 DCW [id number]) Therapeutic Exercises Supine Exercises ITB Supine Exercise Name Supine ITB stretch Side bilateral Standing Exercises ITB Standing Exercise Name Standing ITB stretch Side bilateral PT-OP-T Assessment and Plan Start: 07/21/24 15:56 Freq: Status: Active Protocol: Document 07/21/24 15:15 DCW (Rec: 07/22/24 09:55 DCW [id number]) Physical Therapy Assessment Rehab Potential Rehabilitation Potential Good Evaluation Complexity Number of Personal Factors/Comorbidities 0 Number of Body Systems Impaired 4 or More Clinical Presentation at Evaluation Evolving Impairments Impairments Functional Activities, Functional Mobility,Pain,Soft Tissue Mobility,Strength,Tone Goals Three Impairment Pt unable to fully participate in yoga class due to hip pain Infectious Disease Technician Goal (LTG) Pt to indicate that she is able to tolerate all stretches through her yoga class for four sessions in order to demonstrate return to prior functional level. LTG Duration 10/21/24 Two Impairment Pain limits pt's sleep on majority of nights Infectious Disease Technician Goal (LTG) Pt to report ability to sleep through the night unrestricted by hip pain on at least five nights a week. LTG Duration 10/21/24 One Impairment Pt does not have an appropriate home exercise program Short Term Goal (STG) Pt to be independent and compliant with an appropriate HEP STG Duration 08/21/24 Assessment Summary Assessment Pt presents with signs and symptoms consistent with referring diagnosis. Pt point- specific tenderness bilaterally and involvement of ITB may indicate inflammation of GT bursae. Main limitations involve bringing her hip from extension to flexion, with things like into /out of car and stairs. Pt will likely benefit from skilled therapy focusing on decreasing pain and inflammation, improving hip strength, returning gait to WNL, and returning to prior level of function. Additionally, may also benefit from Iontophoresis with Dexamethasone (10 mg/mL) to assist in decreasing inflammation. Physical Therapy Plan Frequency and Duration Frequency of Treatment 2x/Week Plan of Care Start Date 07/21/24 Plan of Care End Date 09/20/24 Therapeutic Interventions Therapeutic Interventions Gait Training,Home Exercise Program,Joint Mobilizations, Manual Therapy,Neuromuscular Re-education,Patient/Caregiver Education,Self-Care/Home Management,Soft Tissue Mobilization,Taping, Therapeutic Activities, Therapeutic Exercises Modalities Cold Pack/Ice Massage,Hot Packs,Iontophoresis,Ultrasound Other Therapeutic Interventions Iontophoresis /c Dexamethasone 10 mg/mL Next Visit Focus/Plan Next Note Type Treatment Note Next Visit Plan STM, Hip strengthening, Ionto, K-tape if no Ionto
--- NOTE | 2024-07-24 16:09 | PT.OTN ---
Current Diagnoses Pain in right hip (07/24/24) Pain in left hip (07/24/24) Physical Therapy Treatment Note PT-OP-A Visit Information Start: 07/21/24 15:56 Freq: Status: Active Protocol: Document 07/24/24 15:15 DCW (Rec: 07/24/24 16:05 DCW [id number]) Out-Patient Physical Therapy Visit Information Visit Information Visit Type Treatment Note Visit Start Time 15:15 Visit Stop Time 15:50 Visit Number 2 Number of MASON FOREMAN/SUPERINTENDANT Visits 0 Evaluation Information Evaluation Date 07/21/24 PT-OP-B Current Condition Start: 07/21/24 15:56 Freq: Status: Active Protocol: Document 07/21/24 15:15 DCW (Rec: 07/21/24 16:06 DCW [id number]) Current Condition History of Current Condition Onset Date Multi-year history Current Complaints Lateral hip pain, L>R History of Current Condition Pt is a 64 year old female presenting with a multi-year history of bilateral hip pain. Pt notes pain is very point specific on both hips, points to lateral hip just off Greater Tubercle. Notes that she has been getting cortisone injections for a few years, the last one being this past December, but it did not last , and she noted reduced effect compared to prior injections. Pt notes that her pain has been steadily worsening since December. Worst when attempting to sleep while on her side, but getting into/out of her car, getting up from sitting, and stairs all increase discomfort. feels like she has started walking funny to compensate. Has not found anything that helps with her pain. Prior Treatments and Tests Hip X-ray: IMPRESSION: Normal pelvis Evaristo Campos on 06/19/2024 PT-OP-C Subjective Start: 07/21/24 15:56 Freq: Status: Active Protocol: Document 07/24/24 15:15 DCW (Rec: 07/24/24 16:05 [facility] [id number]) OP-PT Subjective Patient Comments Patient Comments I feel like I want to stretch harder. PT-OP-F Manual Assessment Start: 07/21/24 15:56 Freq: Status: Active Protocol: Document 07/21/24 15:15 DCW (Rec: 07/22/24 09:55 DCW [id number]) Manual Assessments Soft Tissue Assessment Soft Tissue Mobility Assessment Bilateral point-specific pain over GT Bursae, along with tenderness to palpation 3/4: wincing and withdraw along bilateral ITB Joint Mobility Assessment Joint Mobility Assessment Very good passive hip mobility bilaterally PT-OP-L Special Tests Start: 07/21/24 15:56 Freq: Status: Active Protocol: Document 07/21/24 15:15 DCW (Rec: 07/22/24 09:55 DCW [id number]) Special Tests Hip Special Tests Straight Leg Raise Test Results Negative Scour Test Test Results Negative Piriformis Test Results Negative FARHAN Test Results Negative Knee Special Tests Rokc's Test Test Results Positive bilaterally PT-OP-M Strength Start: 07/21/24 15:56 Freq: Status: Active Protocol: Document 07/21/24 15:15 DCW (Rec: 07/22/24 09:55 DCW [id number]) Hip Strength Hip Manual Muscle Testing Right Flexion (L2) 5 Normal Abduction 4- Good- Adduction 5 Normal External Rotation 5 Normal Internal Rotation 4 Good Comments Pain with resisted abduction and internal rotation Left Flexion (L2) 5 Normal Abduction 3+ Fair+ Adduction 5 Normal External Rotation 5 Normal Internal Rotation 4- Good- Comments Pain with resisted abduction and internal rotation PT-OP-Q Treatments Start: 07/21/24 15:56 Freq: Status: Active Protocol: Document 07/24/24 15:15 DCW (Rec: 07/24/24 16:05 DCW [id number]) Therapeutic Exercises Sidelying Exercises Hip Abduction Sidelying Exercise Name Hip Abduction Side bilateral Reverse Clamshell Sidelying Exercise Name Reverse Clamshell Side bilateral Clamshell Sidelying Exercise Name Clamshell Side bilateral Sitting Exercises ITB Stretch Sitting Exercise Name Figure-4 with over-pressure on knee Side bilateral Standing Exercises Hip Extension Standing Exercise Name Hip Extension Side bilateral Resistance [place] Hip Hiking Standing Exercise Name Hip Hiking Side bilateral Equipment Used 6 step Other Exercises Resisted Ambulation Other Exercise Name Resisted Side-stepping Resistance [place] BOSU Lunge Other Exercise Name BOSU Lunge Side bilateral Equipment Used Blue BOSU PT-OP-R Modalities Start: 07/24/24 16:05 Freq: Status: Active Protocol: Document 07/24/24 15:15 DCW (Rec: 07/24/24 16:07 DCW [id number]) Iontophoresis Treatment Left Lateral Hip Treatment Medication Dexamethasone (-) Medication Amount (mL) (ml) 1.0 Medication Dosage 10 mg/mL Treatment Polarity Negative to Negative Active Electrode Placement Left GT Bursa Dispersive Electrode Placement Lateral thigh distal to active electrode PT-OP-T Assessment and Plan Start: 07/21/24 15:56 Freq: Status: Active Protocol: Document 07/24/24 15:15 DCW (Rec: 07/24/24 16:05 DCW [id number]) Physical Therapy Assessment Impairments Impairments Functional Activities, Functional Mobility,Pain,Soft Tissue Mobility,Strength,Tone Goals Three Impairment Pt unable to fully participate in yoga class due to hip pain Dictating Machine Mechanic Goal (LTG) Pt to indicate that she is able to tolerate all stretches through her yoga class for four sessions in order to demonstrate return to prior functional level. LTG Duration 10/21/24 Two Impairment Pain limits pt's sleep on majority of nights Residential Goal (LTG) Pt to report ability to sleep through the night unrestricted by hip pain on at least five nights a week. LTG Duration 10/21/24 One Impairment Pt does not have an appropriate home exercise program Short Term Goal (STG) Pt to be independent and compliant with an appropriate HEP STG Duration 08/21/24 Assessment Summary Assessment Trial of Ionto on left GT bursa to test effectiveness, pt to report back next week. If it helped, will try bilaterally. Pt tolerated treatment well, good response to strengthening, tried to limit irritation of ITB and bursae. Physical Therapy Plan Frequency and Duration Frequency of Treatment 2x/Week Plan of Care Start Date 07/21/24 Plan of Care End Date 09/20/24 Therapeutic Interventions Therapeutic Interventions Gait Training,Home Exercise Program,Joint Mobilizations, Manual Therapy,Neuromuscular Re-education,Patient/Caregiver Education,Self-Care/Home Management,Soft Tissue Mobilization,Taping, Therapeutic Activities, Therapeutic Exercises Modalities Cold Pack/Ice Massage,Hot Packs,Iontophoresis,Ultrasound Other Therapeutic Interventions Iontophoresis /c Dexamethasone 10 mg/mL Next Visit Focus/Plan Next Note Type Treatment Note Next Visit Plan STM, Hip strengthening, Ionto
--- NOTE | 2024-07-28 12:15 | PT.OTN ---
Current Diagnoses Pain in right hip (07/28/24) Pain in left hip (07/28/24) Physical Therapy Treatment Note PT-OP-A Visit Information Start: 07/21/24 15:56 Freq: Status: Active Protocol: Document 07/28/24 11:32 SP (Rec: 07/28/24 12:24 SP [id number]) Out-Patient Physical Therapy Visit Information Visit Information Visit Type Treatment Note Visit Start Time 11:32 Visit Stop Time 12:15 Visit Number 3 Number of STRATEGIC PLANNING CONSULTANT Visits 1 Evaluation Information Evaluation Date 07/21/24 PT-OP-B Current Condition Start: 07/21/24 15:56 Freq: Status: Active Protocol: Document 07/21/24 15:15 DCW (Rec: 07/21/24 16:06 DCW [id number]) Current Condition History of Current Condition Onset Date Multi-year history Current Complaints Lateral hip pain, L>R History of Current Condition Pt is a 64 year old female presenting with a multi-year history of bilateral hip pain. Pt notes pain is very point specific on both hips, points to lateral hip just off Greater Tubercle. Notes that she has been getting cortisone injections for a few years, the last one being this past December, but it did not last , and she noted reduced effect compared to prior injections. Pt notes that her pain has been steadily worsening since December. Worst when attempting to sleep while on her side, but getting into/out of her car, getting up from sitting, and stairs all increase discomfort. feels like she has started walking funny to compensate. Has not found anything that helps with her pain. Prior Treatments and Tests Hip X-ray: IMPRESSION: Normal pelvis Evaristo Campos on 06/19/2024 PT-OP-C Subjective Start: 07/21/24 15:56 Freq: Status: Active Protocol: Document 07/28/24 11:32 SP (Rec: 07/28/24 12:24 SP [id number]) OP-PT Subjective Patient Comments Patient Comments Pt reports her L hip bothering her. She felt fine after last tx, thinks Ionto helped with pain, did have some red speckling on skin but didn't bother her, removed patch at 4 hrs. PT-OP-F Manual Assessment Start: 07/21/24 15:56 Freq: Status: Active Protocol: Document 07/21/24 15:15 DCW (Rec: 07/22/24 09:55 DCW [id number]) Manual Assessments Soft Tissue Assessment Soft Tissue Mobility Assessment Bilateral point-specific pain over GT Bursae, along with tenderness to palpation 3/4: wincing and withdraw along bilateral ITB Joint Mobility Assessment Joint Mobility Assessment Very good passive hip mobility bilaterally PT-OP-L Special Tests Start: 07/21/24 15:56 Freq: Status: Active Protocol: Document 07/21/24 15:15 DCW (Rec: 07/22/24 09:55 DCW [id number]) Special Tests Hip Special Tests Straight Leg Raise Test Results Negative Scour Test Test Results Negative Piriformis Test Results Negative FARHAN Test Results Negative Knee Special Tests Rock's Test Test Results Positive bilaterally PT-OP-M Strength Start: 07/21/24 15:56 Freq: Status: Active Protocol: Document 07/21/24 15:15 DCW (Rec: 07/22/24 09:55 DCW [id number]) Hip Strength Hip Manual Muscle Testing Right Flexion (L2) 5 Normal Abduction 4- Good- Adduction 5 Normal External Rotation 5 Normal Internal Rotation 4 Good Comments Pain with resisted abduction and internal rotation Left Flexion (L2) 5 Normal Abduction 3+ Fair+ Adduction 5 Normal External Rotation 5 Normal Internal Rotation 4- Good- Comments Pain with resisted abduction and internal rotation PT-OP-Q Treatments Start: 07/21/24 15:56 Freq: Status: Active Protocol: Document 07/28/24 11:32 SP (Rec: 07/28/24 12:24 SP [id number]) Therapeutic Exercises Supine Exercises HS stretch Supine Exercise Name added to HEP with HO Side bilateral Equipment Used strap Reps/Minutes 30 SH Piriformis Stretch Supine Exercise Name added to HEP with HO Side bilateral Reps/Minutes 30 Sh ITB Supine Exercise Name Supine ITB stretch Side bilateral Equipment Used wtih strap Reps/Minutes 30 SH Sidelying Exercises Hip Abduction Sidelying Exercise Name Hip Abduction- HEP reviewed Side bilateral Resistance AROM (TB next tx) Reps/Minutes x10 Comments cued stacked trunk/hip alignment, DF neutral, leg alignment Reverse Clamshell Sidelying Exercise Name Reverse Clamshell - HEP reviewed Side bilateral Resistance AROM (TB next tx) Reps/Minutes x10 Comments cued slow eccentric return Clamshell Sidelying Exercise Name Clamshell Side bilateral Resistance AROM (TB next tx) Reps/Minutes x10 Comments good self correction stacked alignment lift/lower, slow pacing Manual Therapy Treatment Soft Tissue Mobilization Hips Body Location L glut med, max, PF, TFL Comments STMs and MWM hip ER/IR, ed self ball on wall Joint Mobilizations Hip Joint L Comments anteromedial and posterolateral and inferior glide with strap support- good gentle stretch in jt response . Self-Care/Home Management Treatment Education Patient Education Body Mechanics,Joint Protection,Pain Management Other Education Time spent sleeping, starts on R then moves alot back, R/ L what ever helps comfort. Is able to sleep 7-8hrs uses pillows between BLEs. PT-OP-R Modalities Start: 07/24/24 16:05 Freq: Status: Active Protocol: Document 07/28/24 11:32 SP (Rec: 07/28/24 12:24 SP [id number]) Iontophoresis Treatment Left Lateral Hip Treatment Medication Dexamethasone (-) Medication Amount (mL) (ml) 1.0 Medication Dosage 10 mg/mL Treatment Polarity Negative to Negative Active Electrode Placement Left GT Bursa Dispersive Electrode Placement Lateral thigh distal to active electrode Patient Tolerance Good, noted speckle redness from previous tx PT-OP-T Assessment and Plan Start: 07/21/24 15:56 Freq: Status: Active Protocol: Document 07/28/24 11:32 SP (Rec: 07/28/24 12:24 SP [id number]) Physical Therapy Assessment Goals Three Impairment Pt unable to fully participate in yoga class due to hip pain Care Home Goal (LTG) Pt to indicate that she is able to tolerate all stretches through her yoga class for four sessions in order to demonstrate return to prior functional level. LTG Duration 10/21/24 Two Impairment Pain limits pt's sleep on majority of nights Supervisor Mail Carriers Goal (LTG) Pt to report ability to sleep through the night unrestricted by hip pain on at least five nights a week. LTG Duration 10/21/24 One Impairment Pt does not have an appropriate home exercise program Short Term Goal (STG) Pt to be independent and compliant with an appropriate HEP STG Duration 08/21/24 Assessment Summary Assessment Pt reports some steadily pain L hip during R LE mobiltiy HEP in [place]. Good response to stretching and self STM review post manual end using tennis ball on wall. Provided HOs for carryover set up and recall support per pt request. Physical Therapy Plan Frequency and Duration Frequency of Treatment 2x/Week Plan of Care Start Date 07/21/24 Plan of Care End Date 09/20/24 Therapeutic Interventions Therapeutic Interventions Gait Training,Home Exercise Program,Joint Mobilizations, Manual Therapy,Neuromuscular Re-education,Patient/Caregiver Education,Self-Care/Home Management,Soft Tissue Mobilization,Taping, Therapeutic Activities, Therapeutic Exercises Modalities Cold Pack/Ice Massage,Hot Packs,Iontophoresis,Ultrasound Other Therapeutic Interventions Iontophoresis /c Dexamethasone 10 mg/mL Next Visit Focus/Plan Next Note Type Treatment Note Next Visit Plan Recheck HEP. PROgress standing , POC: STM, Hip strengthening, Ionto
--- NOTE | 2024-07-30 12:18 | PT.OTN ---
Current Diagnoses Pain in right hip (07/30/24) Pain in left hip (07/30/24) Physical Therapy Treatment Note PT-OP-A Visit Information Start: 07/21/24 15:56 Freq: Status: Active Protocol: Document 07/30/24 11:34 SP (Rec: 07/30/24 12:31 SP [id number]) Out-Patient Physical Therapy Visit Information Visit Information Visit Type Treatment Note Visit Start Time 11:34 Visit Stop Time 12:18 Visit Number 4 Number of BOTTLE BLOWING MACHINE TENDER Visits 2 Evaluation Information Evaluation Date 07/21/24 PT-OP-B Current Condition Start: 07/21/24 15:56 Freq: Status: Active Protocol: Document 07/21/24 15:15 DCW (Rec: 07/21/24 16:06 DCW [id number]) Current Condition History of Current Condition Onset Date Multi-year history Current Complaints Lateral hip pain, L>R History of Current Condition Pt is a 64 year old female presenting with a multi-year history of bilateral hip pain. Pt notes pain is very point specific on both hips, points to lateral hip just off Greater Tubercle. Notes that she has been getting cortisone injections for a few years, the last one being this past December, but it did not last , and she noted reduced effect compared to prior injections. Pt notes that her pain has been steadily worsening since December. Worst when attempting to sleep while on her side, but getting into/out of her car, getting up from sitting, and stairs all increase discomfort. feels like she has started walking funny to compensate. Has not found anything that helps with her pain. Prior Treatments and Tests Hip X-ray: IMPRESSION: Normal pelvis Evaristo Campos on 06/19/2024 PT-OP-C Subjective Start: 07/21/24 15:56 Freq: Status: Active Protocol: Document 07/30/24 11:34 SP (Rec: 07/30/24 12:31 SP [id number]) OP-PT Subjective Patient Comments Patient Comments She reports her hips were sore after PT last tx. She reports hardest sidelying abduction causing pain. Noted little rolling ball tissue over L greater trochanter at arrival sensitive to STMs. She stated tried Nabeel Stretch but bed isn't elevated enough,no stretch. Pt reported wanted to continue iontophoresis helps L hip pain. PT-OP-F Manual Assessment Start: 07/21/24 15:56 Freq: Status: Active Protocol: Document 07/21/24 15:15 DCW (Rec: 07/22/24 09:55 DCW [id number]) Manual Assessments Soft Tissue Assessment Soft Tissue Mobility Assessment Bilateral point-specific pain over GT Bursae, along with tenderness to palpation 3/4: wincing and withdraw along bilateral ITB Joint Mobility Assessment Joint Mobility Assessment Very good passive hip mobility bilaterally PT-OP-L Special Tests Start: 07/21/24 15:56 Freq: Status: Active Protocol: Document 07/21/24 15:15 DCW (Rec: 07/22/24 09:55 DCW [id number]) Special Tests Hip Special Tests Straight Leg Raise Test Results Negative Scour Test Test Results Negative Piriformis Test Results Negative FARHAN Test Results Negative Knee Special Tests Rock's Test Test Results Positive bilaterally PT-OP-M Strength Start: 07/21/24 15:56 Freq: Status: Active Protocol: Document 07/21/24 15:15 DCW (Rec: 07/22/24 09:55 DCW [id number]) Hip Strength Hip Manual Muscle Testing Right Flexion (L2) 5 Normal Abduction 4- Good- Adduction 5 Normal External Rotation 5 Normal Internal Rotation 4 Good Comments Pain with resisted abduction and internal rotation Left Flexion (L2) 5 Normal Abduction 3+ Fair+ Adduction 5 Normal External Rotation 5 Normal Internal Rotation 4- Good- Comments Pain with resisted abduction and internal rotation PT-OP-Q Treatments Start: 07/21/24 15:56 Freq: Status: Active Protocol: Document 07/30/24 11:34 SP (Rec: 07/30/24 12:31 SP [id number]) Therapeutic Exercises Sidelying Exercises Hip Abduction Sidelying Exercise Name Hip Abduction- HEP reviewed Side bilateral Resistance AROM (check if can add TB next tx) Equipment Used pillow between knees Reps/Minutes x10 Comments cued stacked trunk/hip alignment, DF neutral, leg alignment Reverse Clamshell Sidelying Exercise Name Reverse Clamshell - HEP reviewed Side bilateral Resistance AROM (check if can add TB next tx) Equipment Used pillow between knees Reps/Minutes x10 Comments cued slow eccentric return Clamshell Sidelying Exercise Name Clamshell Side bilateral Resistance AROM (check if can add TB next tx) Equipment Used pillow between knees Reps/Minutes x10 Comments good self correction stacked alignment lift/lower, slow pacing Sitting Exercises ITB Stretch Sitting Exercise Name Figure-4 with gentle over- pressure on knee Side bilateral Reps/Minutes 30 Sh x2 Comments hip ER Standing Exercises Hip Abduction Standing Exercise Name added to HEP declined HO Side bilateral Resistance TB #2 teal at ankles Equipment Used rail support BUE Reps/Minutes 10 Comments cued tall midline posture Hip Extension Standing Exercise Name Hip Extension Side bilateral Resistance Tb #2 teal at ankles Equipment Used rail support BUE Reps/Minutes 10 reps Comments improved postural correction Other Exercises 1/2 knee hip flexor stretch Other Exercise Name trialed vs Nabeel Stretch- added with HO Side bilateral Reps/Minutes 30 SH with OH reach Comments fwd vs added L hip IR to get to TFL Resisted Ambulation Other Exercise Name Resisted Side-stepping- HEP Resistance Green loop> TB #2 teal at ankles Reps/Minutes 10 ft x2 laps Comments improved no UE support and decreased LB compensations, cued TA Self-Care/Home Management Treatment Education Patient Education Safety Other Education Ed anatomy of hip what muscles are on L hip sore, noted small dime size moving ball under skin. Discussed if worsens talk to Dr but can just be fatty tissue roling. Not on R at palpation. Noted raised slotches about size of 1/2 dollar today, instructed adverse affect to iontophoresis are not continuing til skin heals. PT-OP-R Modalities Start: 07/24/24 16:05 Freq: Status: Active Protocol: Document 07/30/24 11:34 SP (Rec: 07/30/24 12:31 SP [id number]) Iontophoresis Treatment Left Lateral Hip Patient Tolerance unable raised splotches over L lateral hip, itchy- pt not recall previous PT-OP-T Assessment and Plan Start: 07/21/24 15:56 Freq: Status: Active Protocol: Document 07/30/24 11:34 SP (Rec: 07/30/24 12:31 SP [id number]) Physical Therapy Assessment Goals Three Impairment Pt unable to fully participate in yoga class due to hip pain [facility] Goal (LTG) Pt to indicate that she is able to tolerate all stretches through her yoga class for four sessions in order to demonstrate return to prior functional level. LTG Duration 10/21/24 Two Impairment Pain limits pt's sleep on majority of nights Fundraising Specialist Goal (LTG) Pt to report ability to sleep through the night unrestricted by hip pain on at least five nights a week. LTG Duration 10/21/24 One Impairment Pt does not have an appropriate home exercise program Short Term Goal (STG) Pt to be independent and compliant with an appropriate HEP STG Duration 08/21/24 Assessment Summary Assessment Pt improved no pain duirng modification of SL HEP use pillow between BLEs, cues stacked alignment. Progressed standing hip abd and 1/2 kneel hip flexor stretch today with good response. Decreased band tension TB #2 with noted decreased to no trunk and LS compensations during ex. Pt had adverse red splotches where Deximethesone patch was on L lateral hip, pt was wondering why was itchy and didn't recall redness. BOTTLE BLOWING MACHINE TENDER educated was rest speckled dots on skin last tx from iontophoresis 2 tx ago. Educated skin is reacting to tx so are not reapplying til healed normal color texture, and might not beneficial in future. Pt verbalized understanding, she did remove patch but didn't realize redness was adverse affect regardless of what was instructed, like the pain support reduction benefits it provided. Physical Therapy Plan Frequency and Duration Frequency of Treatment 2x/Week Plan of Care Start Date 07/21/24 Plan of Care End Date 09/20/24 Therapeutic Interventions Therapeutic Interventions Gait Training,Home Exercise Program,Joint Mobilizations, Manual Therapy,Neuromuscular Re-education,Patient/Caregiver Education,Self-Care/Home Management,Soft Tissue Mobilization,Taping, Therapeutic Activities, Therapeutic Exercises Modalities Cold Pack/Ice Massage,Hot Packs,Iontophoresis,Ultrasound Other Therapeutic Interventions Iontophoresis /c Dexamethasone 10 mg/mL Next Visit Focus/Plan Next Note Type Treatment Note Next Visit Plan Recheck L hip for skin healing from iontophoresis adverse affect. Recheck HEP resisted HEP standing POC: STM, Hip strengthening, Ionto
--- NOTE | 2024-08-06 11:28 | PT.OTN ---
Current Diagnoses Pain in right hip (08/06/24) Pain in left hip (08/06/24) Physical Therapy Treatment Note PT-OP-A Visit Information Start: 07/21/24 15:56 Freq: Status: Active Protocol: Document 08/06/24 10:48 SP (Rec: 08/06/24 11:49 SP Laptop) Out-Patient Physical Therapy Visit Information Visit Information Visit Type Treatment Note Visit Start Time 10:48 Visit Stop Time 11:28 Visit Number 5 Number of NEWS VIDEOTAPE EDITOR Visits 3 Evaluation Information Evaluation Date 07/21/24 PT-OP-B Current Condition Start: 07/21/24 15:56 Freq: Status: Active Protocol: Document 07/21/24 15:15 DCW (Rec: 07/21/24 16:06 DCW [id number]) Current Condition History of Current Condition Onset Date Multi-year history Current Complaints Lateral hip pain, L>R History of Current Condition Pt is a 64 year old female presenting with a multi-year history of bilateral hip pain. Pt notes pain is very point specific on both hips, points to lateral hip just off Greater Tubercle. Notes that she has been getting cortisone injections for a few years, the last one being this past December, but it did not last , and she noted reduced effect compared to prior injections. Pt notes that her pain has been steadily worsening since December. Worst when attempting to sleep while on her side, but getting into/out of her car, getting up from sitting, and stairs all increase discomfort. feels like she has started walking funny to compensate. Has not found anything that helps with her pain. Prior Treatments and Tests Hip X-ray: IMPRESSION: Normal pelvis Edis Hahn M.D . on 06/19/2024 PT-OP-C Subjective Start: 07/21/24 15:56 Freq: Status: Active Protocol: Document 08/06/24 10:48 SP (Rec: 08/06/24 11:49 SP Laptop) OP-PT Subjective Patient Comments Patient Comments Pt reports compliant with HEP and can do her HEP better on yoga mat than PT table. She reports the raised swelling from the dexamethasone previous 2 treatments ago has shown some little improvement since 2 previous tx ago, discussed will discontinue use , pt disappointed because helped with pain but understands the adverse affect . PT-OP-F Manual Assessment Start: 07/21/24 15:56 Freq: Status: Active Protocol: Document 07/21/24 15:15 DCW (Rec: 07/22/24 09:55 DCW [id number]) Manual Assessments Soft Tissue Assessment Soft Tissue Mobility Assessment Bilateral point-specific pain over GT Bursae, along with tenderness to palpation 3/4: wincing and withdraw along bilateral ITB Joint Mobility Assessment Joint Mobility Assessment Very good passive hip mobility bilaterally PT-OP-L Special Tests Start: 07/21/24 15:56 Freq: Status: Active Protocol: Document 07/21/24 15:15 DCW (Rec: 07/22/24 09:55 DCW [id number]) Special Tests Hip Special Tests Straight Leg Raise Test Results Negative Scour Test Test Results Negative Piriformis Test Results Negative FARHAN Test Results Negative Knee Special Tests Rock's Test Test Results Positive bilaterally PT-OP-M Strength Start: 07/21/24 15:56 Freq: Status: Active Protocol: Document 07/21/24 15:15 DCW (Rec: 07/22/24 09:55 DCW [id number]) Hip Strength Hip Manual Muscle Testing Right Flexion (L2) 5 Normal Abduction 4- Good- Adduction 5 Normal External Rotation 5 Normal Internal Rotation 4 Good Comments Pain with resisted abduction and internal rotation Left Flexion (L2) 5 Normal Abduction 3+ Fair+ Adduction 5 Normal External Rotation 5 Normal Internal Rotation 4- Good- Comments Pain with resisted abduction and internal rotation PT-OP-Q Treatments Start: 07/21/24 15:56 Freq: Status: Active Protocol: Document 08/06/24 10:48 SP (Rec: 08/06/24 11:49 SP Laptop) Therapeutic Exercises Sidelying Exercises Hip Abduction Sidelying Exercise Name Hip Abduction- HEP reviewed Side bilateral Resistance AROM (add TB next tx) Equipment Used no pillows needed Reps/Minutes x10 Comments cued stacked trunk/hip alignment, DF neutral, leg alignment Reverse Clamshell Sidelying Exercise Name Reverse Clamshell - HEP reviewed Side bilateral Resistance AROM> TB #1 light blue Equipment Used no pillow needed Reps/Minutes x10 Comments cued slow eccentric return Clamshell Sidelying Exercise Name Clamshell Side bilateral Resistance AROM> teal #2 (stated will do L3 home has) Equipment Used no pillow needed Reps/Minutes x10 Comments good self correction stacked alignment lift/lower, slow pacing Standing Exercises Stationary lunge Standing Exercise Name initiated declined HO Side bilateral Resistance AROM Reps/Minutes x10 Comments contact table- discussed perform during day sitting for strength& mob Hip Abduction Standing Exercise Name Hip Abduction- Reviewed declined HO Side bilateral Resistance TB #2 teal at ankles Equipment Used rail support light BUE Reps/Minutes 10 Comments Improved tall midline posture Hip Extension Standing Exercise Name Hip Extension- reviewed declined HO Side bilateral Resistance Tb #2 teal at ankles Equipment Used rail support light BUE Reps/Minutes 10 reps Comments improved postural correction Hip Hiking Standing Exercise Name Hip Hiking Side bilateral Equipment Used 6 step, light rail support Reps/Minutes x20 each side Comments good hip abd tiring reported Other Exercises 1/2 knee hip flexor stretch Other Exercise Name reviewed Side bilateral Reps/Minutes 30 SH with OH reach Comments fwd vs added L hip IR to get to TFL Resisted Ambulation Other Exercise Name Resisted Forward, Backward and Side-stepping- HEP Resistance Green loop ([place])- at ankles Reps/Minutes 10 ft x3 laps each direction Comments Improved trunk alignment, foot clearance, cued allow TA and trunk mobility BOSU Lunge Other Exercise Name BOSU Lunge Side bilateral Equipment Used Blue BOSU Manual Therapy Treatment Consent Patient gave verbal consent for manual Yes treatment Soft Tissue Mobilization Hips Body Location L glut med, max, PF, TFL Comments STMs and MWM hip ER/IR, ed self ball on wall Joint Mobilizations Hip Joint L Comments posterolateral and inferior glide with strap support- good gentle stretch in jt response . Self-Care/Home Management Treatment Education Patient Education Body Mechanics,Joint Protection,Pain Management, Safety Other Education Ed not sit to long and perform HEP during day for strength and mobility support. verbalized understanding. PT-OP-R Modalities Start: 07/24/24 16:05 Freq: Status: Active Protocol: Document 08/06/24 10:48 SP (Rec: 08/06/24 11:49 SP Laptop) Iontophoresis Treatment Left Lateral Hip Treatment Medication DC 07/30/24 PT-OP-T Assessment and Plan Start: 07/21/24 15:56 Freq: Status: Active Protocol: Document 08/06/24 10:48 SP (Rec: 08/06/24 11:49 SP Laptop) Physical Therapy Assessment Goals Three Impairment Pt unable to fully participate in yoga class due to hip pain Analytics Associate Goal (LTG) Pt to indicate that she is able to tolerate all stretches through her yoga class for four sessions in order to demonstrate return to prior functional level. LTG Duration 10/21/24 Two Impairment Pain limits pt's sleep on majority of nights Residential Goal (LTG) Pt to report ability to sleep through the night unrestricted by hip pain on at least five nights a week. LTG Duration 10/21/24 One Impairment Pt does not have an appropriate home exercise program Short Term Goal (STG) Pt to be independent and compliant with an appropriate HEP STG Duration 08/21/24 Assessment Summary Assessment Pt good response to added resistance to HEP to progress strengthening and incorporating into her work day with not sitting to long on computer. Reports feels good end tx. DC Iontophoresis due to still residual swelling from 2 tx ago. Physical Therapy Plan Frequency and Duration Frequency of Treatment 2x/Week Plan of Care Start Date 07/21/24 Plan of Care End Date 09/20/24 Therapeutic Interventions Therapeutic Interventions Gait Training,Home Exercise Program,Joint Mobilizations, Manual Therapy,Neuromuscular Re-education,Patient/Caregiver Education,Self-Care/Home Management,Soft Tissue Mobilization,Taping, Therapeutic Activities, Therapeutic Exercises Modalities Cold Pack/Ice Massage,Hot Packs,Iontophoresis,Ultrasound Other Therapeutic Interventions Iontophoresis /c Dexamethasone 10 mg/mL Next Visit Focus/Plan Next Note Type Treatment Note Next Visit Plan *DC Iontophoresis, adverse affect raised swelling. Recheck HEP resisted HEP standing POC: STM, Hip strengthening, Ionto
--- NOTE | 2024-08-15 16:23 | PT.OTN ---
Current Diagnoses Pain in right hip (08/15/24) Pain in left hip (08/15/24) Physical Therapy Treatment Note PT-OP-A Visit Information Start: 07/21/24 15:56 Freq: Status: Active Protocol: Document 08/15/24 15:38 NBM (Rec: 08/15/24 16:21 NBM Laptop) Out-Patient Physical Therapy Visit Information Visit Information Visit Type Treatment Note Visit Start Time 14:40 Visit Stop Time 15:28 Visit Number 6 Number of REGIONAL OPERATIONS MANAGER Visits 4 Evaluation Information Evaluation Date 07/21/24 PT-OP-B Current Condition Start: 07/21/24 15:56 Freq: Status: Active Protocol: Document 07/21/24 15:15 DCW (Rec: 07/21/24 16:06 DCW [id number]) Current Condition History of Current Condition Onset Date Multi-year history Current Complaints Lateral hip pain, L>R History of Current Condition Pt is a 64 year old female presenting with a multi-year history of bilateral hip pain. Pt notes pain is very point specific on both hips, points to lateral hip just off Greater Tubercle. Notes that she has been getting cortisone injections for a few years, the last one being this past December, but it did not last , and she noted reduced effect compared to prior injections. Pt notes that her pain has been steadily worsening since December. Worst when attempting to sleep while on her side, but getting into/out of her car, getting up from sitting, and stairs all increase discomfort. feels like she has started walking funny to compensate. Has not found anything that helps with her pain. Prior Treatments and Tests Hip X-ray: IMPRESSION: Normal pelvis Evaristo Campos on 06/19/2024 PT-OP-C Subjective Start: 07/21/24 15:56 Freq: Status: Active Protocol: Document 08/15/24 15:38 NBM (Rec: 08/15/24 16:21 NBM Laptop) OP-PT Subjective Patient Comments Patient Comments Ellen reports L hip pain 3-4/ 10 currently. Her pain is worst with getting out of car after driving. She regularly awakes in pain, but has added a pillow for between the knees when on her side; she's trying to make herself sleep on her back more. The manual therapy helps. She's trying not to sit as long at a time, and has switched to sitting on bed to write with legs stretched straight out in front of her. Rash from iontophoresis is almost healed . Patient Reported Progress Same PT-OP-F Manual Assessment Start: 07/21/24 15:56 Freq: Status: Active Protocol: Document 07/21/24 15:15 DCW (Rec: 07/22/24 09:55 DCW [id number]) Manual Assessments Soft Tissue Assessment Soft Tissue Mobility Assessment Bilateral point-specific pain over GT Bursae, along with tenderness to palpation 3/4: wincing and withdraw along bilateral ITB Joint Mobility Assessment Joint Mobility Assessment Very good passive hip mobility bilaterally PT-OP-L Special Tests Start: 07/21/24 15:56 Freq: Status: Active Protocol: Document 07/21/24 15:15 DCW (Rec: 07/22/24 09:55 DCW [id number]) Special Tests Hip Special Tests Straight Leg Raise Test Results Negative Scour Test Test Results Negative Piriformis Test Results Negative FARHAN Test Results Negative Knee Special Tests Rock's Test Test Results Positive bilaterally PT-OP-M Strength Start: 07/21/24 15:56 Freq: Status: Active Protocol: Document 07/21/24 15:15 DCW (Rec: 07/22/24 09:55 DCW [id number]) Hip Strength Hip Manual Muscle Testing Right Flexion (L2) 5 Normal Abduction 4- Good- Adduction 5 Normal External Rotation 5 Normal Internal Rotation 4 Good Comments Pain with resisted abduction and internal rotation Left Flexion (L2) 5 Normal Abduction 3+ Fair+ Adduction 5 Normal External Rotation 5 Normal Internal Rotation 4- Good- Comments Pain with resisted abduction and internal rotation PT-OP-Q Treatments Start: 07/21/24 15:56 Freq: Status: Active Protocol: Document 08/15/24 15:38 NBM (Rec: 08/15/24 16:21 NBM Laptop) Therapeutic Exercises Other Exercises 1/2 knee hip flexor stretch Other Exercise Name HEP Side bilateral Equipment Used cushion under knee Reps/Minutes 30 SH with OH reach Comments fwd vs added L hip IR to get to TFL, cues for stopping if becomes painful Resisted Ambulation Other Exercise Name Resisted Forward, Backward and Side-stepping- HEP Resistance Lvl 3 Tb at ankles Equipment Used squat attempted fwd dc/d d/t L hip pain, mod to minisquat Reps/Minutes 10 ft x2 laps each direction Comments cues for neutral foot and excessive lat trunk lean BOSU Lunge Other Exercise Name BOSU Lunge Side bilateral Equipment Used Blue BOSU Reps/Minutes x10 ea Comments cues for LE alignment, square pelvis and toes fwd Therapeutic Activity Therapeutic Activity Body mechanics Comments 1. Getting in/out of car: Edu and practice for getting in/ out of car with both legs instead of swinging L leg separately from R as initially demo'd by pt. 2. Sleeping ergonomics. Edu to pt and pt trials sidelying positioning with pillow support between ankles as well as knees, and with pillow under side - HO given. 3. Sitting ergonomics for writing: Edu to pt for sitting at desk with legs in 90/90 position. Pt encouraged to change positions more frequently, and to utilize lunge stretch before and after sitting with legs extended in front as this position may contribute to hip flexor tightness. Discussed modifying sitting cross-legged with yoga block to stay in pain- free range. - Standing: Pt observed to stand with LLE in excessive hip ER, and pt's self- awareness and self-correction improves throughout session. Manual Therapy Treatment Consent Patient gave verbal consent for manual Yes treatment Soft Tissue Mobilization Hips Body Location L glut med, max, PF, TFL, ITB Mobilization Type Cross-Friction,Rolling, Sustained Pressure,Trigger Point Release Comments Circular strokes distal to proximal L ITB Trigger point release to L Gluteus medius m. review self ball on wall Joint Mobilizations Hip Joint L Body Position Hooklying Reps/Duration 90 Comments posterolateral glide with strap support - pain relief reported. Neuro Re-Education Treatment Movement Re-Education Movement Re-education Activities BOSU dome: 1. DL squats - cues for weight shifting from forefoot towards heels x10 2. SL step up - reciprocal arm swing and brief hold x10 B Self-Care/Home Management Treatment Education Patient Education Body Mechanics,Joint Protection,Pain Management, Safety Other Education Significant time spent providing edu to pt for body mechanics and ergonomics (See Therapeutic Activity). -Edu to pt re: use of cryotherapy for pain management; offered end of session and declined. PT-OP-R Modalities Start: 07/24/24 16:05 Freq: Status: Active Protocol: Document 08/06/24 10:48 SP (Rec: 08/06/24 11:49 SP Laptop) Iontophoresis Treatment Left Lateral Hip Treatment Medication DC 07/30/24 PT-OP-T Assessment and Plan Start: 07/21/24 15:56 Freq: Status: Active Protocol: Document 08/15/24 15:38 NBM (Rec: 08/15/24 16:21 NBM Laptop) Physical Therapy Assessment Goals Three Impairment Pt unable to fully participate in yoga class due to hip pain Usp Goal (LTG) Pt to indicate that she is able to tolerate all stretches through her yoga class for four sessions in order to demonstrate return to prior functional level. LTG Duration 10/21/24 Two Impairment Pain limits pt's sleep on majority of nights Slitter Helper Goal (LTG) Pt to report ability to sleep through the night unrestricted by hip pain on at least five nights a week. LTG Duration 10/21/24 One Impairment Pt does not have an appropriate home exercise program Short Term Goal (STG) Pt to be independent and compliant with an appropriate HEP STG Duration 08/21/24 Assessment Summary Assessment Ellen presents with L hip pain 3-4/10 which increases slightly to 4-5/10 end of session. Treatment focus on Therapeutic Activity, HEP review for LE strengthening and stretching, and manual therapy. Significant time spent providing edu to pt for body mechanics and ergonomics (See Therapeutic Activity). Ellen requires consistent cues for L>R neutral foot positioning both in standing and with exercises, and demos improved self-awareness throughout session. Palpable tension to L Gluteus medius m. improves with trigger point release and pt reports looser . Edu to pt re: use of cryotherapy for pain management; offered end of session and declined. Physical Therapy Plan Frequency and Duration Frequency of Treatment 2x/Week Plan of Care Start Date 07/21/24 Plan of Care End Date 09/20/24 Therapeutic Interventions Therapeutic Interventions Gait Training,Home Exercise Program,Joint Mobilizations, Manual Therapy,Neuromuscular Re-education,Patient/Caregiver Education,Self-Care/Home Management,Soft Tissue Mobilization,Taping, Therapeutic Activities, Therapeutic Exercises Modalities Cold Pack/Ice Massage,Hot Packs,Iontophoresis,Ultrasound Other Therapeutic Interventions Iontophoresis /c Dexamethasone 10 mg/mL Next Visit Focus/Plan Next Note Type Treatment Note Next Visit Plan *DC Iontophoresis, adverse affect raised swelling. Recheck HEP resisted HEP standing POC: STM, Hip strengthening, Ionto
--- NOTE | 2024-08-27 15:29 | PT.OTN ---
Current Diagnoses Pain in right hip (08/27/24) Pain in left hip (08/27/24) Physical Therapy Treatment Note PT-OP-A Visit Information Start: 07/21/24 15:56 Freq: Status: Active Protocol: Document 08/27/24 13:47 PG (Rec: 08/27/24 15:29 PG Laptop) Out-Patient Physical Therapy Visit Information Visit Information Visit Type Treatment Note Visit Note SPTA led treatment with permission of pt and direct supervision of Goldie OLIVO. Visit Start Time 13:47 Visit Stop Time 14:30 Visit Number 8 Number of NEWSPAPER PEDDLER Visits 1 Evaluation Information Evaluation Date 07/21/24 PT-OP-B Current Condition Start: 07/21/24 15:56 Freq: Status: Active Protocol: Document 07/21/24 15:15 DCW (Rec: 07/21/24 16:06 DCW [id number]) Current Condition History of Current Condition Onset Date Multi-year history Current Complaints Lateral hip pain, L>R History of Current Condition Pt is a 64 year old female presenting with a multi-year history of bilateral hip pain. Pt notes pain is very point specific on both hips, points to lateral hip just off Greater Tubercle. Notes that she has been getting cortisone injections for a few years, the last one being this past December, but it did not last , and she noted reduced effect compared to prior injections. Pt notes that her pain has been steadily worsening since December. Worst when attempting to sleep while on her side, but getting into/out of her car, getting up from sitting, and stairs all increase discomfort. feels like she has started walking funny to compensate. Has not found anything that helps with her pain. Prior Treatments and Tests Hip X-ray: IMPRESSION: Normal pelvis Evaristo Campos on 06/19/2024 PT-OP-C Subjective Start: 07/21/24 15:56 Freq: Status: Active Protocol: Document 08/27/24 13:47 PG (Rec: 08/27/24 15:29 PG Laptop) OP-PT Subjective Patient Comments Patient Comments Pt states she's feeling okay. She did report that she had fell last Sunday walking down the stairs due to her bifocals causing disturbance in being able to see the stairs and she landed on her L knee, no lingering pain. Was out of town this last weekend and didn't have much time for HEP. PT-OP-F Manual Assessment Start: 07/21/24 15:56 Freq: Status: Active Protocol: Document 07/21/24 15:15 DCW (Rec: 07/22/24 09:55 DCW [id number]) Manual Assessments Soft Tissue Assessment Soft Tissue Mobility Assessment Bilateral point-specific pain over GT Bursae, along with tenderness to palpation 3/4: wincing and withdraw along bilateral ITB Joint Mobility Assessment Joint Mobility Assessment Very good passive hip mobility bilaterally PT-OP-L Special Tests Start: 07/21/24 15:56 Freq: Status: Active Protocol: Document 07/21/24 15:15 DCW (Rec: 07/22/24 09:55 DCW [id number]) Special Tests Hip Special Tests Straight Leg Raise Test Results Negative Scour Test Test Results Negative Piriformis Test Results Negative FARHAN Test Results Negative Knee Special Tests Rock's Test Test Results Positive bilaterally PT-OP-M Strength Start: 07/21/24 15:56 Freq: Status: Active Protocol: Document 07/21/24 15:15 DCW (Rec: 07/22/24 09:55 DCW [id number]) Hip Strength Hip Manual Muscle Testing Right Flexion (L2) 5 Normal Abduction 4- Good- Adduction 5 Normal External Rotation 5 Normal Internal Rotation 4 Good Comments Pain with resisted abduction and internal rotation Left Flexion (L2) 5 Normal Abduction 3+ Fair+ Adduction 5 Normal External Rotation 5 Normal Internal Rotation 4- Good- Comments Pain with resisted abduction and internal rotation PT-OP-Q Treatments Start: 07/21/24 15:56 Freq: Status: Active Protocol: Document 08/27/24 13:47 PG (Rec: 08/27/24 15:29 PG Laptop) Therapeutic Exercises Supine Exercises Piriformis Stretch Supine Exercise Name Reviewed Side bilateral Reps/Minutes 40 seconds Comments Cues for set up Sitting Exercises ER/IR Sitting Exercise Name Resisted hip ER/IR, ball between legs to prevent hip abd/add Side bilateral Resistance level 2 (green TB) Equipment Used mesh chair, small ball - Added to HEP w HO Reps/Minutes x10 each Comments IR: band around both ankles, ER: band around ankle and chair leg Piriformis Sitting Exercise Name Reviewed: Piriformis Stretch - Seated Figure-4 Side bilateral Reps/Minutes 40 hold Comments Pt preferred over supine figure 4 Standing Exercises ER/IR Standing Exercise Name Reviewed Half-kneel on stool, resisted ER/IR Side bilateral Resistance Lv 2 Equipment Used black rolling stool, therapist anchoring band Reps/Minutes x10 each Comments good form and response, would be challenging to do @home, provided sitting Other Exercises Resisted Ambulation Other Exercise Name Reviewed: Resisted Forward, Backward and Side-stepping Resistance [place] TB at ankles Reps/Minutes 10 ft x2 laps each direction Comments cues for midline decre lat SB, Lat walking: lead w heel to target glutes Manual Therapy Treatment Soft Tissue Mobilization Hips Body Location L glut med, max, PF, TFL, ITB, Piriformis Mobilization Type Rolling,Sustained Pressure Intensity/Depth Moderate Body Position Sidelying Comments Circular strokes distal to proximal L ITB. Rolling to L gluteus Medius, max, piriformis. Self-Care/Home Management Treatment Education Patient Education Joint Protection,Pain Management Other Education Pt mentioned she has been trying but tends to forget to use better body mechanics when getting out of the car. Recommended cues on a sticky note as a visual reminder. Would benefit from further demonstration/simulation from PT. PT-OP-R Modalities Start: 07/24/24 16:05 Freq: Status: Active Protocol: Document 08/06/24 10:48 SP (Rec: 08/06/24 11:49 SP Laptop) Iontophoresis Treatment Left Lateral Hip Treatment Medication DC 07/30/24 PT-OP-T Assessment and Plan Start: 07/21/24 15:56 Freq: Status: Active Protocol: Document 08/27/24 13:47 PG (Rec: 08/27/24 15:29 PG Laptop) Physical Therapy Assessment Impairments Impairments Functional Activities, Functional Mobility,Pain,Soft Tissue Mobility,Strength,Tone Goals Three Impairment Pt unable to fully participate in yoga class due to hip pain [employer] Goal (LTG) Pt to indicate that she is able to tolerate all stretches through her yoga class for four sessions in order to demonstrate return to prior functional level. LTG Duration 10/21/24 Two Impairment Pain limits pt's sleep on majority of nights [employer]mer Goal (LTG) Pt to report ability to sleep through the night unrestricted by hip pain on at least five nights a week. LTG Duration 10/21/24 One Impairment Pt does not have an appropriate home exercise program Short Term Goal (STG) Pt to be independent and compliant with an appropriate HEP STG Duration 08/21/24 Assessment Summary Assessment Pt tolerated manual STM to try and decrease pain in lateral L hip. Reviewed rotational hip stretches and ER/IR strengthening exercises. Initiated sitting ER/IR exercise for HEP due to easier time replicating at home, provided HO and progressed resisted walking exercises with a [place] band. Pt continues to require v/c's to prevent lateral trunk bending during resisted walking. Physical Therapy Plan Frequency and Duration Frequency of Treatment 2x/Week Plan of Care Start Date 07/21/24 Plan of Care End Date 09/20/24 Therapeutic Interventions Therapeutic Interventions Gait Training,Home Exercise Program,Joint Mobilizations, Manual Therapy,Neuromuscular Re-education,Patient/Caregiver Education,Self-Care/Home Management,Soft Tissue Mobilization,Taping, Therapeutic Activities, Therapeutic Exercises Modalities Cold Pack/Ice Massage,Hot Packs,Iontophoresis,Ultrasound Other Therapeutic Interventions Iontophoresis /c Dexamethasone 10 mg/mL Next Visit Focus/Plan Next Note Type Treatment Note Next Visit Plan *DC Iontophoresis, adverse affect raised swelling. Recheck HEP, review body mechanics when getting out of the car. Next: Lateral ermelinda walking with focus on hip ER for strengthening and increased time in SLS. POC: STM, Hip strengthening, Ionto
--- NOTE | 2024-08-29 12:14 | PT.OTN ---
Current Diagnoses Pain in right hip (08/29/24) Pain in left hip (08/29/24) Physical Therapy Treatment Note PT-OP-A Visit Information Start: 07/21/24 15:56 Freq: Status: Active Protocol: Document 08/29/24 11:30 DCW (Rec: 08/29/24 12:14 DCW [id number]) Out-Patient Physical Therapy Visit Information Visit Information Visit Type Treatment Note Visit Start Time 11:30 Visit Stop Time 12:15 Visit Number 9 Number of KETTLE FRY COOK OPERATOR Visits 0 Evaluation Information Evaluation Date 07/21/24 PT-OP-B Current Condition Start: 07/21/24 15:56 Freq: Status: Active Protocol: Document 07/21/24 15:15 DCW (Rec: 07/21/24 16:06 DCW [id number]) Current Condition History of Current Condition Onset Date Multi-year history Current Complaints Lateral hip pain, L>R History of Current Condition Pt is a 64 year old female presenting with a multi-year history of bilateral hip pain. Pt notes pain is very point specific on both hips, points to lateral hip just off Greater Tubercle. Notes that she has been getting cortisone injections for a few years, the last one being this past December, but it did not last , and she noted reduced effect compared to prior injections. Pt notes that her pain has been steadily worsening since December. Worst when attempting to sleep while on her side, but getting into/out of her car, getting up from sitting, and stairs all increase discomfort. feels like she has started walking funny to compensate. Has not found anything that helps with her pain. Prior Treatments and Tests Hip X-ray: IMPRESSION: Normal pelvis Evaristo Campos on 06/19/2024 PT-OP-C Subjective Start: 07/21/24 15:56 Freq: Status: Active Protocol: Document 08/29/24 11:30 DCW (Rec: 08/29/24 12:14 DCW [id number]) OP-PT Subjective Patient Comments Patient Comments Feeling okay...it's just a constant low pain, like a 3/10 , it's always there, unless I do something to really flare it up. PT-OP-F Manual Assessment Start: 07/21/24 15:56 Freq: Status: Active Protocol: Document 07/21/24 15:15 DCW (Rec: 07/22/24 09:55 DCW [id number]) Manual Assessments Soft Tissue Assessment Soft Tissue Mobility Assessment Bilateral point-specific pain over GT Bursae, along with tenderness to palpation 3/4: wincing and withdraw along bilateral ITB Joint Mobility Assessment Joint Mobility Assessment Very good passive hip mobility bilaterally PT-OP-L Special Tests Start: 07/21/24 15:56 Freq: Status: Active Protocol: Document 07/21/24 15:15 DCW (Rec: 07/22/24 09:55 DCW [id number]) Special Tests Hip Special Tests Straight Leg Raise Test Results Negative Scour Test Test Results Negative Piriformis Test Results Negative FARHAN Test Results Negative Knee Special Tests Rock's Test Test Results Positive bilaterally PT-OP-M Strength Start: 07/21/24 15:56 Freq: Status: Active Protocol: Document 07/21/24 15:15 DCW (Rec: 07/22/24 09:55 DCW [id number]) Hip Strength Hip Manual Muscle Testing Right Flexion (L2) 5 Normal Abduction 4- Good- Adduction 5 Normal External Rotation 5 Normal Internal Rotation 4 Good Comments Pain with resisted abduction and internal rotation Left Flexion (L2) 5 Normal Abduction 3+ Fair+ Adduction 5 Normal External Rotation 5 Normal Internal Rotation 4- Good- Comments Pain with resisted abduction and internal rotation PT-OP-Q Treatments Start: 07/21/24 15:56 Freq: Status: Active Protocol: Document 08/29/24 11:30 DCW (Rec: 08/29/24 12:14 DCW [id number]) Gym Equipment Shuttle Balance Red Details WBOS, Staggered, Lateral weight shift Manual Therapy Treatment Soft Tissue Mobilization Hips Body Location B glut med, max, PF, TFL, ITB, Piriformis Mobilization Type Rolling,Sustained Pressure Intensity/Depth Moderate Body Position Prone Joint Mobilizations Lumbar Joint Vertebral mobs Direction P->A Grade III Body Position Prone Hip Joint B Body Position Hooklying Reps/Duration 90 Comments posterolateral glide with strap support PT-OP-R Modalities Start: 07/24/24 16:05 Freq: Status: Active Protocol: Document 08/06/24 10:48 SP (Rec: 08/06/24 11:49 SP Laptop) Iontophoresis Treatment Left Lateral Hip Treatment Medication DC 07/30/24 PT-OP-T Assessment and Plan Start: 07/21/24 15:56 Freq: Status: Active Protocol: Document 08/29/24 11:30 DCW (Rec: 08/29/24 12:14 DCW [id number]) Physical Therapy Assessment Impairments Impairments Functional Activities, Functional Mobility,Pain,Soft Tissue Mobility,Strength,Tone Goals Three Impairment Pt unable to fully participate in yoga class due to hip pain Pararescue Manager Goal (LTG) Pt to indicate that she is able to tolerate all stretches through her yoga class for four sessions in order to demonstrate return to prior functional level. LTG Duration 10/21/24 Two Impairment Pain limits pt's sleep on majority of nights Pararescue Manager Goal (LTG) Pt to report ability to sleep through the night unrestricted by hip pain on at least five nights a week. LTG Duration 10/21/24 One Impairment Pt does not have an appropriate home exercise program Short Term Goal (STG) Pt to be independent and compliant with an appropriate HEP STG Duration 08/21/24 Assessment Summary Assessment Spent more time today working on some manual treatment, increased lumbar and hip mobs. Pt noted after working on strength last week, she felt occasional hamstring cramping. Physical Therapy Plan Frequency and Duration Frequency of Treatment 2x/Week Plan of Care Start Date 07/21/24 Plan of Care End Date 09/20/24 Therapeutic Interventions Therapeutic Interventions Gait Training,Home Exercise Program,Joint Mobilizations, Manual Therapy,Neuromuscular Re-education,Patient/Caregiver Education,Self-Care/Home Management,Soft Tissue Mobilization,Taping, Therapeutic Activities, Therapeutic Exercises Modalities Cold Pack/Ice Massage,Hot Packs,Iontophoresis,Ultrasound Other Therapeutic Interventions Iontophoresis /c Dexamethasone 10 mg/mL Next Visit Focus/Plan Next Note Type Treatment Note Next Visit Plan *DC Iontophoresis, adverse affect raised swelling. Recheck HEP, review body mechanics when getting out of the car. Next: Lateral ermelinda walking with focus on hip ER for strengthening and increased time in SLS. POC: STM, Hip strengthening, Ionto
--- NOTE | 2024-09-03 10:25 | PT.OTN ---
Current Diagnoses Pain in right hip (09/03/24) Pain in left hip (09/03/24) Physical Therapy Treatment Note PT-OP-A Visit Information Start: 07/21/24 15:56 Freq: Status: Active Protocol: Document 09/03/24 09:45 PG (Rec: 09/03/24 11:09 PG Laptop) Out-Patient Physical Therapy Visit Information Visit Information Visit Type Treatment Note Visit Note APOORVA Morley led tx with permission from pt and direct supervision of Goldie OLIVO. Visit Start Time 09:45 Visit Stop Time 10:25 Visit Number 10 Number of AIR CARRIER INSPECTOR Visits 1 Evaluation Information Evaluation Date 07/21/24 PT-OP-B Current Condition Start: 07/21/24 15:56 Freq: Status: Active Protocol: Document 07/21/24 15:15 DCW (Rec: 07/21/24 16:06 DCW [id number]) Current Condition History of Current Condition Onset Date Multi-year history Current Complaints Lateral hip pain, L>R History of Current Condition Pt is a 64 year old female presenting with a multi-year history of bilateral hip pain. Pt notes pain is very point specific on both hips, points to lateral hip just off Greater Tubercle. Notes that she has been getting cortisone injections for a few years, the last one being this past December, but it did not last , and she noted reduced effect compared to prior injections. Pt notes that her pain has been steadily worsening since December. Worst when attempting to sleep while on her side, but getting into/out of her car, getting up from sitting, and stairs all increase discomfort. feels like she has started walking funny to compensate. Has not found anything that helps with her pain. Prior Treatments and Tests Hip X-ray: IMPRESSION: Normal pelvis Evaristo Campos on 06/19/2024 PT-OP-C Subjective Start: 07/21/24 15:56 Freq: Status: Active Protocol: Document 09/03/24 09:45 PG (Rec: 09/03/24 11:09 PG Laptop) OP-PT Subjective Patient Comments Patient Comments Pt is doing well, participated in a workout class yesterday and expects to be sore tomorrow. Went on a 2 mile walk at a faster speed then norm, felt pain in L hip around mile 1.5. Has had a some rough nights sleeping due to waking up with L hip pain; often repositions from her R side to her Back with her hips /knees at 90/90. Had to take medicine last night to help herself go back to bed. Pt did readjust her schedule to be 1x a week due to one of the ferry [place] being broke down causing a 4hr trip for her to PT. PT-OP-F Manual Assessment Start: 07/21/24 15:56 Freq: Status: Active Protocol: Document 07/21/24 15:15 DCW (Rec: 07/22/24 09:55 DCW [id number]) Manual Assessments Soft Tissue Assessment Soft Tissue Mobility Assessment Bilateral point-specific pain over GT Bursae, along with tenderness to palpation 3/4: wincing and withdraw along bilateral ITB Joint Mobility Assessment Joint Mobility Assessment Very good passive hip mobility bilaterally PT-OP-L Special Tests Start: 07/21/24 15:56 Freq: Status: Active Protocol: Document 07/21/24 15:15 DCW (Rec: 07/22/24 09:55 DCW [id number]) Special Tests Hip Special Tests Straight Leg Raise Test Results Negative Scour Test Test Results Negative Piriformis Test Results Negative FARHAN Test Results Negative Knee Special Tests Rock's Test Test Results Positive bilaterally PT-OP-M Strength Start: 07/21/24 15:56 Freq: Status: Active Protocol: Document 07/21/24 15:15 DCW (Rec: 07/22/24 09:55 DCW [id number]) Hip Strength Hip Manual Muscle Testing Right Flexion (L2) 5 Normal Abduction 4- Good- Adduction 5 Normal External Rotation 5 Normal Internal Rotation 4 Good Comments Pain with resisted abduction and internal rotation Left Flexion (L2) 5 Normal Abduction 3+ Fair+ Adduction 5 Normal External Rotation 5 Normal Internal Rotation 4- Good- Comments Pain with resisted abduction and internal rotation PT-OP-Q Treatments Start: 07/21/24 15:56 Freq: Status: Active Protocol: Document 09/03/24 09:45 PG (Rec: 09/03/24 11:09 PG Laptop) Gym Equipment Shuttle Recovery Unilateral Squats Resistance 37# (One navy) Reps/Time x10 each Bilateral Squats Resistance 62# (Two navy) Shuttle Recovery Platform Stable Reps/Time x20 Shuttle Balance Red Details WBOS, Staggered, Lateral weight shift Comments Challenged with lat WBOS balance and weight shifts, hard to shift weight to the left with control. Therapeutic Exercises Sitting Exercises ER/IR Sitting Exercise Name Verbally reviewed, ex is good but chair set up is difficult Standing Exercises Self STM Standing Exercise Name Reviewed Self STM: Tennisball in pillowcase against wall for better control Side left Equipment Used tennis ball, pillow case, wall Reps/Minutes 2 minutes Other Exercises 1/2 knee hip flexor stretch Other Exercise Name Verbally reviewed, no issues Therapeutic Activity Therapeutic Activity Body mechanics Name Reviewed Getting out of car and sleeping Comments 1. Getting in/out of car: Edu and practice for getting in/ out of car with both legs instead of swinging L leg and bearing weight separately from R. 2. Sleeping ergonomics. Edu pt to trial laying on stomach with pillow under her pelvis/ abdomen to prevent LBP and allow her to stretch hip flexors from 90/90 position on her back. DC if increasing LBP and/or further disrupting sleep. Manual Therapy Treatment Consent Patient gave verbal consent for manual Yes treatment Soft Tissue Mobilization Hips Body Location B glut med, max, PF, TFL, ITB, Piriformis Mobilization Type Rolling,Sustained Pressure Intensity/Depth Moderate Body Position Prone Self-Care/Home Management Treatment Education Patient Education Home Exercise Program,Pain Management Other Education Pt currently uses partial body weight on top of tennis ball due to losing ball against wall. Instructed pt in using ball in a pillow case for improved control w/o bearing weight into UE's. PT-OP-R Modalities Start: 07/24/24 16:05 Freq: Status: Active Protocol: Document 08/06/24 10:48 SP (Rec: 08/06/24 11:49 SP Laptop) Iontophoresis Treatment Left Lateral Hip Treatment Medication DC 07/30/24 PT-OP-T Assessment and Plan Start: 07/21/24 15:56 Freq: Status: Active Protocol: Document 09/03/24 09:45 PG (Rec: 09/03/24 11:09 PG Laptop) Physical Therapy Assessment Impairments Impairments Functional Activities, Functional Mobility,Pain,Soft Tissue Mobility,Strength,Tone Goals Three Impairment Pt unable to fully participate in yoga class due to hip pain Snf Goal (LTG) Pt to indicate that she is able to tolerate all stretches through her yoga class for four sessions in order to demonstrate return to prior functional level. LTG Duration 10/21/24 Two Impairment Pain limits pt's sleep on majority of nights Accounting Administrator Goal (LTG) Pt to report ability to sleep through the night unrestricted by hip pain on at least five nights a week. LTG Duration 10/21/24 One Impairment Pt does not have an appropriate home exercise program Short Term Goal (STG) Pt to be independent and compliant with an appropriate HEP STG Duration 08/21/24 Assessment Summary Assessment Continued with manual to help decrease tension/relieve pain in L hip muscles. Educated pt in using a tennis ball in a pillowcase against the wall for improved control of the ball, pt was able to manage pressure of body against ball better in standing versus lifting her bodyweight atop of it while on the floor. Reviewed sleeping positions with HO to help manage pt's interrupted sleep, as well as body mechanics when getting out of the car to prevent increased L hip pain, pt will trial prone position with pillow under her pelvis/ abdomen into her sleeping routine to relieve hip flexors from extensive time in a flexed position if she wakes up. Pt will also continue to implement and carry over techniques practiced in [place] for getting out of the car with reduced L hip pain. Physical Therapy Plan Frequency and Duration Frequency of Treatment 2x/Week Plan of Care Start Date 07/21/24 Plan of Care End Date 09/20/24 Therapeutic Interventions Therapeutic Interventions Gait Training,Home Exercise Program,Joint Mobilizations, Manual Therapy,Neuromuscular Re-education,Patient/Caregiver Education,Self-Care/Home Management,Soft Tissue Mobilization,Taping, Therapeutic Activities, Therapeutic Exercises Modalities Cold Pack/Ice Massage,Hot Packs,Iontophoresis,Ultrasound Other Therapeutic Interventions Iontophoresis /c Dexamethasone 10 mg/mL - DC Next Visit Focus/Plan Next Note Type Treatment Note Next Visit Plan Next: Prog Note. Find an IR/ ER hip strengthening exercise w/ easier home set up for pt. Trial hurdles and SLS. POC: STM, Hip strengthening
--- NOTE | 2024-09-11 12:14 | PT.OTN ---
Current Diagnoses Pain in right hip (09/11/24) Pain in left hip (09/11/24) Physical Therapy Treatment Note PT-OP-A Visit Information Start: 07/21/24 15:56 Freq: Status: Active Protocol: Document 09/11/24 11:30 DCW (Rec: 09/11/24 12:14 DCW [id number]) Out-Patient Physical Therapy Visit Information Visit Information Visit Type Progress Note Visit Start Time 11:30 Visit Stop Time 12:15 Visit Number 11 Number of CASTING TESTER Visits 0 Evaluation Information Evaluation Date 07/21/24 PT-OP-B Current Condition Start: 07/21/24 15:56 Freq: Status: Active Protocol: Document 07/21/24 15:15 DCW (Rec: 07/21/24 16:06 DCW [id number]) Current Condition History of Current Condition Onset Date Multi-year history Current Complaints Lateral hip pain, L>R History of Current Condition Pt is a 64 year old female presenting with a multi-year history of bilateral hip pain. Pt notes pain is very point specific on both hips, points to lateral hip just off Greater Tubercle. Notes that she has been getting cortisone injections for a few years, the last one being this past December, but it did not last , and she noted reduced effect compared to prior injections. Pt notes that her pain has been steadily worsening since December. Worst when attempting to sleep while on her side, but getting into/out of her car, getting up from sitting, and stairs all increase discomfort. feels like she has started walking funny to compensate. Has not found anything that helps with her pain. Prior Treatments and Tests Hip X-ray: IMPRESSION: Normal pelvis Evaristo Campos on 06/19/2024 PT-OP-C Subjective Start: 07/21/24 15:56 Freq: Status: Active Protocol: Document 09/11/24 11:30 DCW (Rec: 09/11/24 12:14 DCW [id number]) OP-PT Subjective Patient Comments Patient Comments Pt notes she is seeing good improvement, but still has bad nights occasionally, and notes she is still hurting after walking more than a mile . PT-OP-F Manual Assessment Start: 07/21/24 15:56 Freq: Status: Active Protocol: Document 09/11/24 11:30 DCW (Rec: 09/11/24 11:47 DCW [id number]) Manual Assessments Soft Tissue Assessment Soft Tissue Mobility Assessment Bilateral point-specific pain over GT Bursae, along with tenderness to palpation 2/4: pain with wincing along bilateral ITB Joint Mobility Assessment Joint Mobility Assessment Very good passive hip mobility bilaterally PT-OP-L Special Tests Start: 07/21/24 15:56 Freq: Status: Active Protocol: Document 09/11/24 11:30 DCW (Rec: 09/11/24 11:47 DCW [id number]) Special Tests Knee Special Tests Rock's Test Test Results Positive right PT-OP-M Strength Start: 07/21/24 15:56 Freq: Status: Active Protocol: Document 09/11/24 11:30 DCW (Rec: 09/11/24 11:47 DCW [id number]) Hip Strength Hip Manual Muscle Testing Right Flexion (L2) 5 Normal Abduction 4 Good Adduction 5 Normal External Rotation 5 Normal Internal Rotation 4+ Good+ Comments Pain with resisted internal rotation Left Flexion (L2) 5 Normal Abduction 4 Good Adduction 5 Normal External Rotation 5 Normal Internal Rotation 4- Good- Comments Pain with resisted external and internal rotation PT-OP-Q Treatments Start: 07/21/24 15:56 Freq: Status: Active Protocol: Document 09/11/24 11:30 DCW (Rec: 09/11/24 12:14 DCW [id number]) Gym Equipment Shuttle Balance Red Details WBOS, Staggered, Lateral weight shift Manual Therapy Treatment Consent Patient gave verbal consent for manual Yes treatment Soft Tissue Mobilization Hips Body Location B glut med, max, PF, TFL, ITB, Piriformis Mobilization Type Rolling,Sustained Pressure Intensity/Depth Moderate Body Position Prone Joint Mobilizations Lumbar Joint Vertebral mobs Direction P->A Grade III Body Position Prone PT-OP-R Modalities Start: 07/24/24 16:05 Freq: Status: Active Protocol: Document 08/06/24 10:48 SP (Rec: 08/06/24 11:49 SP Laptop) Iontophoresis Treatment Left Lateral Hip Treatment Medication DC 07/30/24 PT-OP-T Assessment and Plan Start: 07/21/24 15:56 Freq: Status: Active Protocol: Document 09/11/24 11:30 DCW (Rec: 09/11/24 12:14 DCW [id number]) Physical Therapy Assessment Impairments Impairments Functional Activities, Functional Mobility,Pain,Soft Tissue Mobility,Strength,Tone Goals Three Impairment Pt unable to fully participate in yoga class due to hip pain Care Home Goal (LTG) Pt to indicate that she is able to tolerate all stretches through her yoga class for four sessions in order to demonstrate return to prior functional level. LTG Duration 11/11/24 Two Impairment Pain limits pt's sleep on majority of nights Relays Draftsperson Goal (LTG) Pt to report ability to sleep through the night unrestricted by hip pain on at least five nights a week. LTG Duration 11/11/24 One Impairment Pt does not have an appropriate home exercise program Short Term Goal (STG) Pt to be independent and compliant with an appropriate HEP STG Duration 08/21/24 Assessment Summary Assessment Pt showing some good improvement overall, but does continue to exhibit symptoms, including night-time pain and pain with ambulation. Is happy overall with progress, has been fairly compliant with HEP . Continue to focus on STM, flexibility, strengthening, and improving functional mobility in order to return to prior level of function. Physical Therapy Plan Frequency and Duration Frequency of Treatment 2x/Week Plan of Care Start Date 09/11/24 Plan of Care End Date 11/11/24 Therapeutic Interventions Therapeutic Interventions Gait Training,Home Exercise Program,Joint Mobilizations, Manual Therapy,Neuromuscular Re-education,Patient/Caregiver Education,Self-Care/Home Management,Soft Tissue Mobilization,Taping, Therapeutic Activities, Therapeutic Exercises Modalities Cold Pack/Ice Massage,Hot Packs,Ultrasound Next Visit Focus/Plan Next Note Type Treatment Note Next Visit Plan Next: Prog Note. Find an IR/ ER hip strengthening exercise w/ easier home set up for pt. Trial hurdles and SLS. POC: STM, Hip strengthening
--- NOTE | 2024-09-11 12:14 | PT.OPPOC ---
Physical, Occupational & Speech Therapy At [facility] Current Diagnoses Pain in right hip (09/11/24) Pain in left hip (09/11/24) Visit Care Team Role Provider Type Tino Day DO Attending Provider Physician Family Provider Primary Care Provider Referring Provider Specialty: Family Practice Address: [address] [place] [address], [facility] Email: [email or web address] Plan Of Care PT-OP-B Current Condition Start: 07/21/24 15:56 Freq: Status: Active Protocol: Document 07/21/24 15:15 DCW (Rec: 07/21/24 16:06 DCW [id number]) Current Condition History of Current Condition Onset Date Multi-year history Current Complaints Lateral hip pain, L>R History of Current Condition Pt is a 64 year old female presenting with a multi-year history of bilateral hip pain. Pt notes pain is very point specific on both hips, points to lateral hip just off Greater Tubercle. Notes that she has been getting cortisone injections for a few years, the last one being this past December, but it did not last , and she noted reduced effect compared to prior injections. Pt notes that her pain has been steadily worsening since December. Worst when attempting to sleep while on her side, but getting into/out of her car, getting up from sitting, and stairs all increase discomfort. feels like she has started walking funny to compensate. Has not found anything that helps with her pain. Prior Treatments and Tests Hip X-ray: IMPRESSION: Normal pelvis Evaristo Campos on 06/19/2024 PT-OP-T Assessment and Plan Start: 07/21/24 15:56 Freq: Status: Active Protocol: Document 09/11/24 11:30 DCW (Rec: 09/11/24 12:14 DCW [id number]) Physical Therapy Assessment Impairments Impairments Functional Activities, Functional Mobility,Pain,Soft Tissue Mobility,Strength,Tone Goals Three Impairment Pt unable to fully participate in yoga class due to hip pain Detention Goal (LTG) Pt to indicate that she is able to tolerate all stretches through her yoga class for four sessions in order to demonstrate return to prior functional level. LTG Duration 11/11/24 Two Impairment Pain limits pt's sleep on majority of nights Plc Technician Goal (LTG) Pt to report ability to sleep through the night unrestricted by hip pain on at least five nights a week. LTG Duration 11/11/24 One Impairment Pt does not have an appropriate home exercise program Short Term Goal (STG) Pt to be independent and compliant with an appropriate HEP STG Duration 08/21/24 Assessment Summary Assessment Pt showing some good improvement overall, but does continue to exhibit symptoms, including night-time pain and pain with ambulation. Is happy overall with progress, has been fairly compliant with HEP . Continue to focus on STM, flexibility, strengthening, and improving functional mobility in order to return to prior level of function. Physical Therapy Plan Frequency and Duration Frequency of Treatment 2x/Week Plan of Care Start Date 09/11/24 Plan of Care End Date 11/11/24 Therapeutic Interventions Therapeutic Interventions Gait Training,Home Exercise Program,Joint Mobilizations, Manual Therapy,Neuromuscular Re-education,Patient/Caregiver Education,Self-Care/Home Management,Soft Tissue Mobilization,Taping, Therapeutic Activities, Therapeutic Exercises Modalities Cold Pack/Ice Massage,Hot Packs,Ultrasound Next Visit Focus/Plan Next Note Type Treatment Note Next Visit Plan Next: Prog Note. Find an IR/ ER hip strengthening exercise w/ easier home set up for pt. Trial hurdles and SLS. POC: STM, Hip strengthening Plan of Care Dates Plan of Care Start Date 09/11/24 Plan of Care End Date 11/11/24 Electronically Signed by: Connor Roberson, PT 09/11/24 [id number] If you are in agreement with this Plan of Care, please return a signed and dated copy. I have reviewed this Plan of Care and certify that the skilled therapy services above are required to meet the patient?s needs. Physician Signature Date Printed Name and Credentials Clinical Instructor Signature Printed Name and Credentials
--- NOTE | 2024-09-17 12:15 | PT.OTN ---
Current Diagnoses Pain in right hip (09/17/24) Pain in left hip (09/17/24) Physical Therapy Treatment Note PT-OP-A Visit Information Start: 07/21/24 15:56 Freq: Status: Active Protocol: Document 09/17/24 11:37 SP (Rec: 09/17/24 12:25 SP [id number]) Out-Patient Physical Therapy Visit Information Visit Information Visit Type Treatment Note Visit Start Time 11:37 Visit Stop Time 12:15 Visit Number 12 Number of MARKETING STRATEGY LEAD Visits 1 Evaluation Information Evaluation Date 07/21/24 PT-OP-B Current Condition Start: 07/21/24 15:56 Freq: Status: Active Protocol: Document 07/21/24 15:15 DCW (Rec: 07/21/24 16:06 DCW [id number]) Current Condition History of Current Condition Onset Date Multi-year history Current Complaints Lateral hip pain, L>R History of Current Condition Pt is a 64 year old female presenting with a multi-year history of bilateral hip pain. Pt notes pain is very point specific on both hips, points to lateral hip just off Greater Tubercle. Notes that she has been getting cortisone injections for a few years, the last one being this past December, but it did not last , and she noted reduced effect compared to prior injections. Pt notes that her pain has been steadily worsening since December. Worst when attempting to sleep while on her side, but getting into/out of her car, getting up from sitting, and stairs all increase discomfort. feels like she has started walking funny to compensate. Has not found anything that helps with her pain. Prior Treatments and Tests Hip X-ray: IMPRESSION: Normal pelvis Evaristo Campos on 06/19/2024 PT-OP-C Subjective Start: 07/21/24 15:56 Freq: Status: Active Protocol: Document 09/17/24 11:37 SP (Rec: 09/17/24 12:25 SP [id number]) OP-PT Subjective Patient Comments Patient Comments Pt reports hip pain better, can sleep almost through the night, wakes up to move pillows. She has returned to yoga, dance and strength class . She states does get sore after dance class with jumping around. She reports wants to look at couple strength class exercises to get better at. Is still stiff getting out of car in hips but after walks 1/ [address] around car loosens up, want to help PT-OP-F Manual Assessment Start: 07/21/24 15:56 Freq: Status: Active Protocol: Document 09/11/24 11:30 DCW (Rec: 09/11/24 11:47 DCW [id number]) Manual Assessments Soft Tissue Assessment Soft Tissue Mobility Assessment Bilateral point-specific pain over GT Bursae, along with tenderness to palpation 2/4: pain with wincing along bilateral ITB Joint Mobility Assessment Joint Mobility Assessment Very good passive hip mobility bilaterally PT-OP-L Special Tests Start: 07/21/24 15:56 Freq: Status: Active Protocol: Document 09/11/24 11:30 DCW (Rec: 09/11/24 11:47 DCW [id number]) Special Tests Knee Special Tests Rock's Test Test Results Positive right PT-OP-M Strength Start: 07/21/24 15:56 Freq: Status: Active Protocol: Document 09/11/24 11:30 DCW (Rec: 09/11/24 11:47 DCW [id number]) Hip Strength Hip Manual Muscle Testing Right Flexion (L2) 5 Normal Abduction 4 Good Adduction 5 Normal External Rotation 5 Normal Internal Rotation 4+ Good+ Comments Pain with resisted internal rotation Left Flexion (L2) 5 Normal Abduction 4 Good Adduction 5 Normal External Rotation 5 Normal Internal Rotation 4- Good- Comments Pain with resisted external and internal rotation PT-OP-Q Treatments Start: 07/21/24 15:56 Freq: Status: Active Protocol: Document 09/17/24 11:37 SP (Rec: 09/17/24 12:25 SP [id number]) Therapeutic Exercises Prone Exercises Hip IR Prone Exercise Name added HEP found more muscle tiring effort (d eclined HO) Side bilateral Resistance Tb #1 around ankles Reps/Minutes 10 reps Comments cued flat on stomach/rest on forearms, slow pacing motion, no LB arch. Sidelying Exercises Hip Abduction Sidelying Exercise Name Hip Abduction- HEP reviewed Side bilateral Resistance TB #3 at thighs Reps/Minutes 20 reps Comments good form Reverse Clamshell Sidelying Exercise Name reviewed Side bilateral Resistance TB #3 on ankles Reps/Minutes 20 reps Comments cued no LB arch/neutral with TA- better range R than L Clamshell Sidelying Exercise Name DC easy, good strengthen testing last tx with PT PN Sitting Exercises ER/IR Sitting Exercise Name IR only needed , ER strength 5 /5 at last tx/PN Side bilateral Resistance TB #3 on ankles Equipment Used small orang ball between B knees Reps/Minutes 15 reps Comments feet on floor, tall posture, femur supported on chair Standing Exercises SL RDL Standing Exercise Name review strength class exercise form Side bilateral Resistance AROM Equipment Used hands to elevated stool Reps/Minutes 10 reps each side Comments cued chest lift, hip hinge, level pelvis, slower pacing TA help stability HIp Flexor stretch Standing Exercise Name Added lunge stretch- declined HO Side bilateral Equipment Used contact counter- car door when come stand Reps/Minutes 30sec Comments perform after get out car for hip mobility Stationary lunge Standing Exercise Name Reviewed 1. stationary then class review 2. lunge<> SLS High knee Side bilateral Resistance AROM Reps/Minutes 1. 15 reps 2. 10 reps each Comments near rail, improve with cues for COG over SLS INA, slower pacing Hip Abduction Standing Exercise Name Hip Abduction- Reviewed declined HO Side bilateral Resistance TB #3 at ankles Equipment Used rail support BUE Reps/Minutes 10 Comments good form postural corrections PT-OP-R Modalities Start: 07/24/24 16:05 Freq: Status: Active Protocol: Document 08/06/24 10:48 SP (Rec: 08/06/24 11:49 SP Laptop) Iontophoresis Treatment Left Lateral Hip Treatment Medication DC 07/30/24 PT-OP-T Assessment and Plan Start: 07/21/24 15:56 Freq: Status: Active Protocol: Document 09/17/24 11:37 SP (Rec: 09/17/24 12:25 SP [id number]) Physical Therapy Assessment Goals Three Impairment Pt unable to fully participate in yoga class due to hip pain Fpc Goal (LTG) Pt to indicate that she is able to tolerate all stretches through her yoga class for four sessions in order to demonstrate return to prior functional level. LTG Duration 11/11/24 Two Impairment Pain limits pt's sleep on majority of nights Fpc Goal (LTG) Pt to report ability to sleep through the night unrestricted by hip pain on at least five nights a week. LTG Duration 11/11/24 One Impairment Pt does not have an appropriate home exercise program Short Term Goal (STG) Pt to be independent and compliant with an appropriate HEP STG Duration 4/24/25 Assessment Summary Assessment Pt responded well muscle tiring to increased resistance to SL and seated HEP for hip IR and abduction progress strengthening today. Reviewed form for stability and LE strength lunge into/out of SLS high knee and SL hip hinge RDL to improved form and confidence in her strength class with cues for posture/ trunk/LE positioning and TA no pain end tx. Still just hip stiffness when gets out of car driving but has seen improvements. Physical Therapy Plan Frequency and Duration Frequency of Treatment 2x/Week Plan of Care Start Date 09/11/24 Plan of Care End Date 11/11/24 Therapeutic Interventions Therapeutic Interventions Gait Training,Home Exercise Program,Joint Mobilizations, Manual Therapy,Neuromuscular Re-education,Patient/Caregiver Education,Self-Care/Home Management,Soft Tissue Mobilization,Taping, Therapeutic Activities, Therapeutic Exercises Modalities Cold Pack/Ice Massage,Hot Packs,Ultrasound Next Visit Focus/Plan Next Note Type Treatment Note Next Visit Plan Next: continue hip abd & IR strengthening, review her self lunge into SLS HK and SLS RDL and more challenging strength class like. My only need 3 more tx scheduled. POC: STM, Hip strengthening
--- NOTE | 2024-10-01 17:03 | PT.OTN ---
Addendum entered and electronically signed by Connor Roberson, PT 10/01/24 17:38: PT direct supervision and direction to student PT Reynaldo Flores throughout session Original Note: Current Diagnoses Pain in right hip (10/01/24) Pain in left hip (10/01/24) Physical Therapy Treatment Note PT-OP-A Visit Information Start: 07/21/24 15:56 Freq: Status: Active Protocol: Document 10/01/24 12:18 LFG (Rec: 10/01/24 12:40 LFG [id number]) Out-Patient Physical Therapy Visit Information Visit Information Visit Type Treatment Note Visit Start Time 11:30 Visit Stop Time 12:11 Visit Number 0 Evaluation Information Evaluation Date 07/21/24 PT-OP-B Current Condition Start: 07/21/24 15:56 Freq: Status: Active Protocol: Document 07/21/24 15:15 DCW (Rec: 07/21/24 16:06 DCW [id number]) Current Condition History of Current Condition Onset Date Multi-year history Current Complaints Lateral hip pain, L>R History of Current Pt is a 64 year old female presenting with a multi-year Condition history of bilateral hip pain. Pt notes pain is very point specific on both hips, points to lateral hip just off Greater Tubercle. Notes that she has been getting cortisone injections for a few years, the last one being this past December, but it did not last, and she noted reduced effect compared to prior injections. Pt notes that her pain has been steadily worsening since December. Worst when attempting to sleep while on her side, but getting into/out of her car, getting up from sitting, and stairs all increase discomfort. feels like she has started walking funny to compensate. Has not found anything that helps with her pain. Prior Treatments and Hip X-ray: IMPRESSION: Normal pelvis Edis Valdivia M.D. on 06/19/2024 PT-OP-C Subjective Start: 07/21/24 15:56 Freq: Status: Active Protocol: Document 10/01/24 12:18 LFG (Rec: 10/01/24 12:40 LFG [id number]) OP-PT Subjective Patient Comments Patient Comments Pt reports continued trouble sleeping at night on her back and her on side, even with a pillow between the knees but is feeling good today. PT-OP-F Manual Assessment Start: 07/21/24 15:56 Freq: Status: Active Protocol: Document 09/11/24 11:30 DCW (Rec: 09/11/24 11:47 DCW [id number]) Manual Assessments Soft Tissue Assessment Soft Tissue Mobility Bilateral point-specific pain over GT Bursae, along Assessment with tenderness to palpation 2/4: pain with wincing along bilateral ITB Joint Mobility Assessment Joint Mobility Very good passive hip mobility bilaterally Assessment PT-OP-L Special Tests Start: 07/21/24 15:56 Freq: Status: Active Protocol: Document 09/11/24 11:30 DCW (Rec: 09/11/24 11:47 DCW [id number]) Special Tests Knee Special Tests Rock's Test Test Results Positive right PT-OP-M Strength Start: 07/21/24 15:56 Freq: Status: Active Protocol: Document 09/11/24 11:30 DCW (Rec: 09/11/24 11:47 DCW [id number]) Hip Strength Hip Manual Muscle Testing Right Flexion (L2) 5 Normal Abduction 4 Good Adduction 5 Normal External Rotation 5 Normal Internal Rotation 4+ Good+ Comments Pain with resisted internal rotation Left Flexion (L2) 5 Normal Abduction 4 Good Adduction 5 Normal External Rotation 5 Normal Internal Rotation 4- Good- Comments Pain with resisted external and internal rotation PT-OP-Q Treatments Start: 07/21/24 15:56 Freq: Status: Active Protocol: Document 10/01/24 12:18 LFG (Rec: 10/01/24 12:40 LFG [id number]) Therapeutic Exercises Supine Exercises Glute bridge Supine Exercise Name Staggered stance -> SL Side bilateral Equipment Used circular unstable pad Comments VC to lower other leg to level hips Prone Exercises Bird dog Prone Exercise Name Bird dogs, modified/full combo Side bilateral Equipment Used Unstable pad, half foam roller Comments VC to slow down, level hips, arch low back Sidelying Exercises Suspended reverse clamshell Sidelying Exercise hip maintained in abduction during reverse clamshell Name Side bilateral Comments Pt reported hip pain after couple of reps Hip Abduction Sidelying Exercise Hip abd Name Side bilateral Resistance no tb used Comments good form Reverse Clamshell Sidelying Exercise reverse clamshell Name Side bilateral Resistance L3 tb Clamshell Sidelying Exercise clamshell Name Side bilateral Resistance L3 tb Standing Exercises Hip Hiking Standing Exercise Hip hikes Name Side bilateral Equipment Used 6 stair step Comments Pt balance challenged when not holding on to rail PT-OP-R Modalities Start: 07/24/24 16:05 Freq: Status: Active Protocol: Document 08/06/24 10:48 SP (Rec: 08/06/24 11:49 SP Laptop) Iontophoresis Treatment Left Lateral Hip Treatment Medication DC 07/30/24 PT-OP-T Assessment and Plan Start: 07/21/24 15:56 Freq: Status: Active Protocol: Document 10/01/24 12:18 LFG (Rec: 10/01/24 12:40 LFG [id number]) Physical Therapy Assessment Impairments Impairments Functional Activities,Functional Mobility,Pain,Soft Tissue Mobility,Strength,Tone Goals Three Impairment Pt unable to fully participate in yoga class due to hip pain Fdc Goal (LTG) Pt to indicate that she is able to tolerate all stretches through her yoga class for four sessions in order to demonstrate return to prior functional level. LTG Duration 11/11/24 Two Impairment Pain limits pt's sleep on majority of nights Singing Telegram Performer Goal (LTG) Pt to report ability to sleep through the night unrestricted by hip pain on at least five nights a week . LTG Duration 11/11/24 One Impairment Pt does not have an appropriate home exercise program Short Term Goal (STG Pt to be independent and compliant with an appropriate ) HEP STG Duration 08/21/24 Assessment Summary Assessment Pt tolerated todays session well with minimal complaints of hip pain during sidelying therapeutic exercise. Would benefit from review of more exercises from her exercise class with VC to improve UE/trunk/LE positioning. Continue to focus on STM, flexibility, strengthening, and improving functional mobility Physical Therapy Plan Frequency and Duration Frequency of 2x/Week Treatment Plan of Care Start 09/11/24 Date Plan of Care End 11/11/24 Date Therapeutic Interventions Therapeutic Gait Training,Home Exercise Program,Joint Mobilizations Interventions ,Manual Therapy,Neuromuscular Re-education,Patient/ Caregiver Education,Self-Care/Home Management,Soft Tissue Mobilization,Taping,Therapeutic Activities, Therapeutic Exercises Modalities Cold Pack/Ice Massage,Hot Packs,Ultrasound Next Visit Focus/Plan Next Note Type Treatment Note Next Visit Plan Next: continue hip abd & IR strengthening, review her self lunge into SLS HK and SLS RDL and more challenging strength class like. My only need 2 more tx scheduled. POC: STM, Hip strengthening
--- NOTE | 2024-10-08 12:16 | PT.OTN ---
Current Diagnoses Pain in right hip (10/08/24) Pain in left hip (10/08/24) Physical Therapy Treatment Note PT-OP-A Visit Information Start: 07/21/24 15:56 Freq: Status: Active Protocol: Document 10/08/24 11:30 DCW (Rec: 10/08/24 12:16 DCW [id number]) Out-Patient Physical Therapy Visit Information Visit Information Visit Type Treatment Note Visit Start Time 11:30 Visit Stop Time 12:15 Visit Number 14 Number of DIRECTOR OF SCIENTIFIC RESEARCH Visits 0 Evaluation Information Evaluation Date 07/21/24 PT-OP-B Current Condition Start: 07/21/24 15:56 Freq: Status: Active Protocol: Document 07/21/24 15:15 DCW (Rec: 07/21/24 16:06 DCW [id number]) Current Condition History of Current Condition Onset Date Multi-year history Current Complaints Lateral hip pain, L>R History of Current Pt is a 64 year old female presenting with a multi-year Condition history of bilateral hip pain. Pt notes pain is very point specific on both hips, points to lateral hip just off Greater Tubercle. Notes that she has been getting cortisone injections for a few years, the last one being this past December, but it did not last, and she noted reduced effect compared to prior injections. Pt notes that her pain has been steadily worsening since December. Worst when attempting to sleep while on her side, but getting into/out of her car, getting up from sitting, and stairs all increase discomfort. feels like she has started walking funny to compensate. Has not found anything that helps with her pain. Prior Treatments and Hip X-ray: IMPRESSION: Normal pelvis Edis Valdivia M.D. on 06/19/2024 PT-OP-C Subjective Start: 07/21/24 15:56 Freq: Status: Active Protocol: Document 10/08/24 11:30 DCW (Rec: 10/08/24 12:16 DCW [id number]) OP-PT Subjective Patient Comments Patient Comments Pt notes things are feeling really good, but it's still mainly at night. PT-OP-F Manual Assessment Start: 07/21/24 15:56 Freq: Status: Active Protocol: Document 09/11/24 11:30 DCW (Rec: 09/11/24 11:47 DCW [id number]) Manual Assessments Soft Tissue Assessment Soft Tissue Mobility Bilateral point-specific pain over GT Bursae, along Assessment with tenderness to palpation 2/4: pain with wincing along bilateral ITB Joint Mobility Assessment Joint Mobility Very good passive hip mobility bilaterally Assessment PT-OP-L Special Tests Start: 07/21/24 15:56 Freq: Status: Active Protocol: Document 09/11/24 11:30 DCW (Rec: 09/11/24 11:47 DCW [id number]) Special Tests Knee Special Tests Rock's Test Test Results Positive right PT-OP-M Strength Start: 07/21/24 15:56 Freq: Status: Active Protocol: Document 09/11/24 11:30 DCW (Rec: 09/11/24 11:47 DCW [id number]) Hip Strength Hip Manual Muscle Testing Right Flexion (L2) 5 Normal Abduction 4 Good Adduction 5 Normal External Rotation 5 Normal Internal Rotation 4+ Good+ Comments Pain with resisted internal rotation Left Flexion (L2) 5 Normal Abduction 4 Good Adduction 5 Normal External Rotation 5 Normal Internal Rotation 4- Good- Comments Pain with resisted external and internal rotation PT-OP-Q Treatments Start: 07/21/24 15:56 Freq: Status: Active Protocol: Document 10/08/24 11:30 DCW (Rec: 10/08/24 12:16 DCW [id number]) Gym Equipment Shuttle Recovery Unilateral Squats Resistance 37# (One navy) Reps/Time x10 each Bilateral Squats Resistance 62# (Two navy) Shuttle Recovery Unstable Platform Reps/Time x20 Therapeutic Exercises Supine Exercises Piriformis Stretch Side bilateral Reps/Minutes 40 hold ITB Supine Exercise Name Supine ITB stretch Side bilateral Reps/Minutes 30 hold Other Exercises Step-up Other Exercise Name Lateral Step-up Equipment Used 8 step BOSU Lunge Other Exercise Name BOSU Lunge Side bilateral Equipment Used Blue BOSU Reps/Minutes x15 Fwd, x15 lateral Comments cues for LE alignment, square pelvis and toes fwd Manual Therapy Treatment Soft Tissue Mobilization Hips Body Location L glut med, max, PF, TFL, ITB, Piriformis Mobilization Type Rolling,Sustained Pressure Intensity/Depth Moderate Body Position Sidelying Joint Mobilizations Lumbar Joint Vertebral mobs Direction P->A Grade III Body Position Prone PT-OP-R Modalities Start: 07/24/24 16:05 Freq: Status: Active Protocol: Document 08/06/24 10:48 SP (Rec: 08/06/24 11:49 SP Laptop) Iontophoresis Treatment Left Lateral Hip Treatment Medication DC 07/30/24 PT-OP-T Assessment and Plan Start: 07/21/24 15:56 Freq: Status: Active Protocol: Document 10/08/24 11:30 DCW (Rec: 10/08/24 12:16 DCW [id number]) Physical Therapy Assessment Impairments Impairments Functional Activities,Functional Mobility,Pain,Soft Tissue Mobility,Strength,Tone Goals Three Impairment Pt unable to fully participate in yoga class due to hip pain Intermediate Goal (LTG) Pt to indicate that she is able to tolerate all stretches through her yoga class for four sessions in order to demonstrate return to prior functional level. LTG Duration 11/11/24 Two Impairment Pain limits pt's sleep on majority of nights Charm Filter Operator Helper Goal (LTG) Pt to report ability to sleep through the night unrestricted by hip pain on at least five nights a week . LTG Duration 11/11/24 One Impairment Pt does not have an appropriate home exercise program Short Term Goal (STG Pt to be independent and compliant with an appropriate ) HEP STG Duration 08/21/24 Assessment Summary Assessment Pt continues to respond well to treatment, much better overall, although continues to note pain in hip when sleeping, mainly on her side. Discussed ways to remain on back during the night. Pt overall tolerated treatment well, definite muscle fatigue today with activity. Physical Therapy Plan Frequency and Duration Frequency of 2x/Week Treatment Plan of Care Start 09/11/24 Date Plan of Care End 11/11/24 Date Therapeutic Interventions Therapeutic Gait Training,Home Exercise Program,Joint Mobilizations Interventions ,Manual Therapy,Neuromuscular Re-education,Patient/ Caregiver Education,Self-Care/Home Management,Soft Tissue Mobilization,Taping,Therapeutic Activities, Therapeutic Exercises Modalities Cold Pack/Ice Massage,Hot Packs,Ultrasound Next Visit Focus/Plan Next Note Type Treatment Note Next Visit Plan Next: continue hip abd & IR strengthening, review her self lunge into SLS HK and SLS RDL and more challenging strength class like. My only need 2 more tx scheduled. POC: STM, Hip strengthening
--- NOTE | 2024-10-15 11:32 | PT.OTN ---
Current Diagnoses Pain in right hip (10/15/24) Pain in left hip (10/15/24) Physical Therapy Treatment Note PT-OP-A Visit Information Start: 07/21/24 15:56 Freq: Status: Active Protocol: Document 10/15/24 10:46 SP (Rec: 10/15/24 11:33 SP [id number]) Out-Patient Physical Therapy Visit Information Visit Information Visit Type Treatment Note Visit Start Time 10:46 Visit Stop Time 11:32 Visit Number 15 Number of REWINDER OPERATOR HELPER Visits 1 Evaluation Information Evaluation Date 07/21/24 PT-OP-B Current Condition Start: 07/21/24 15:56 Freq: Status: Active Protocol: Document 07/21/24 15:15 DCW (Rec: 07/21/24 16:06 DCW [id number]) Current Condition History of Current Condition Onset Date Multi-year history Current Complaints Lateral hip pain, L>R History of Current Pt is a 64 year old female presenting with a multi-year Condition history of bilateral hip pain. Pt notes pain is very point specific on both hips, points to lateral hip just off Greater Tubercle. Notes that she has been getting cortisone injections for a few years, the last one being this past December, but it did not last, and she noted reduced effect compared to prior injections. Pt notes that her pain has been steadily worsening since December. Worst when attempting to sleep while on her side, but getting into/out of her car, getting up from sitting, and stairs all increase discomfort. feels like she has started walking funny to compensate. Has not found anything that helps with her pain. Prior Treatments and Hip X-ray: IMPRESSION: Normal pelvis Edis Valdivia M.D. on 06/19/2024 PT-OP-C Subjective Start: 07/21/24 15:56 Freq: Status: Active Protocol: Document 10/15/24 10:46 SP (Rec: 10/15/24 11:33 SP [id number]) OP-PT Subjective Patient Comments Patient Comments Pt reports compliant with HEP 3x/wk. She reports leg in /out car stopped being more stiffness than painful and has come back. PT-OP-F Manual Assessment Start: 07/21/24 15:56 Freq: Status: Active Protocol: Document 09/11/24 11:30 DCW (Rec: 09/11/24 11:47 DCW [id number]) Manual Assessments Soft Tissue Assessment Soft Tissue Mobility Bilateral point-specific pain over GT Bursae, along Assessment with tenderness to palpation 2/4: pain with wincing along bilateral ITB Joint Mobility Assessment Joint Mobility Very good passive hip mobility bilaterally Assessment PT-OP-L Special Tests Start: 07/21/24 15:56 Freq: Status: Active Protocol: Document 09/11/24 11:30 DCW (Rec: 09/11/24 11:47 DCW [id number]) Special Tests Knee Special Tests Rock's Test Test Results Positive right PT-OP-M Strength Start: 07/21/24 15:56 Freq: Status: Active Protocol: Document 09/11/24 11:30 DCW (Rec: 09/11/24 11:47 DCW [id number]) Hip Strength Hip Manual Muscle Testing Right Flexion (L2) 5 Normal Abduction 4 Good Adduction 5 Normal External Rotation 5 Normal Internal Rotation 4+ Good+ Comments Pain with resisted internal rotation Left Flexion (L2) 5 Normal Abduction 4 Good Adduction 5 Normal External Rotation 5 Normal Internal Rotation 4- Good- Comments Pain with resisted external and internal rotation PT-OP-Q Treatments Start: 07/21/24 15:56 Freq: Status: Active Protocol: Document 10/15/24 10:46 SP (Rec: 10/15/24 11:33 SP [id number]) Gym Equipment Shuttle Recovery Unilateral Squats Details good form/pacing Resistance 37# (One navy) Reps/Time x20 reps each LE Bilateral Squats Details good form/pacing Resistance 62# (Two navy) Shuttle Recovery Unstable Platform Reps/Time x20 Shuttle Balance Red Details WBOS, Staggered, Lateral Comments Head turns/vertical CG-5%A good form EC WBOS 3-5 sec balloon volley- stride stance 2 between feet Therapeutic Exercises Supine Exercises Glute bridge Supine Exercise Name Staggered stance -> SL Side bilateral Resistance AROM Equipment Used circular unstable pad (blue disc) Reps/Minutes 10 reps each LE Comments VC leg up toward ceiling, slow pacing lift/lower, level pelvis ITB Supine Exercise Name Supine ITB stretch Side bilateral Equipment Used strap on foot Reps/Minutes 15 hold x2 reps- approx time can perform before feel L hip irritation Comments cued only range gentle stretch, no pain Sidelying Exercises Reverse Clamshell Sidelying Exercise reverse clamshell Name Side bilateral Resistance L3 tb at ankles Reps/Minutes 15reps (15-20 home) Comments good form Clamshell Sidelying Exercise clamshell Name Side bilateral Resistance L3 tb at upper koo Equipment Used yoga mat Reps/Minutes 15 reps (15-20 home) Comments good form Standing Exercises steps ups Standing Exercise High knee opp LE Name Resistance BOSU Equipment Used //bar PRN Reps/Minutes 10 reps each LE Comments cued elongated posture midline stability SL RDL Standing Exercise review strength class exercise form Name Side bilateral Resistance AROM, alana 2# DB Equipment Used hands to elevated stool Reps/Minutes 10 reps each side (AROM and 2# DB) Comments cued chest lift, lead LE lift back first, level pelvis Stationary lunge Standing Exercise Reviewed 1. BOUS fwd 2. step up into SLS High knee Name Side bilateral Resistance AROM Equipment Used BOSU, //bar PRN nearby Reps/Minutes 10 reps each Comments near rail, improve with cues for COG over SLS INA, slower pacing Hip Abduction Standing Exercise Hip Abduction- Reviewed declined HO Name Side bilateral Resistance TB #3 at ankles Equipment Used rail support PRN Reps/Minutes 2x 10 Comments improved self postural corrections Therapeutic Activity Therapeutic Activity stand sit, leg crossed (self activity found online) Reps/Minutes 3 reps Comments no UE support stand>sit, UE support with cues for trunk forward wt shift to stand PT-OP-R Modalities Start: 07/24/24 16:05 Freq: Status: Active Protocol: Document 08/06/24 10:48 SP (Rec: 08/06/24 11:49 SP Laptop) Iontophoresis Treatment Left Lateral Hip Treatment Medication DC 07/30/24 PT-OP-T Assessment and Plan Start: 07/21/24 15:56 Freq: Status: Active Protocol: Document 10/15/24 10:46 SP (Rec: 10/15/24 11:33 SP [id number]) Physical Therapy Assessment Goals Three Impairment Pt unable to fully participate in yoga class due to hip pain Elementary Reading Tutor Goal (LTG) Pt to indicate that she is able to tolerate all stretches through her yoga class for four sessions in order to demonstrate return to prior functional level. 10/15/24: progressing: Yoga classes ended for summer, perform home remember, only pain with ITB stretch with strap. Reviewed in PT cued smaller range, less time hold 15 tolerant. LTG Duration 11/11/24 Two Impairment Pain limits pt's sleep on majority of nights Elementary Reading Tutor Goal (LTG) Pt to report ability to sleep through the night unrestricted by hip pain on at least five nights a week . 10/15/24: progressing: pain comes and goes, approx 2 nights a week wakes due to pain. LTG Duration 11/11/24 progressing 10/15/24 One Impairment Pt does not have an appropriate home exercise program Short Term Goal (STG Pt to be independent and compliant with an appropriate ) HEP 10/15/24: HEP reports YOga ex can remember onTV, aerobic dance class, walk and weight ex learned in PT 2-3 a week. STG Duration 08/21/24 progressing 10/15/24 Assessment Summary Assessment Pt worked hard, good response to more resistive ther ex and progression into SL balance activities with no reports of pain. Cues for body positioning and core/hip engagement improved midline stability. She arrived with inquiry of stand<>sit with leg crossed, able to sit slow controlled but requires UE support to stand, cues to wt shift fwd. Encouraged to continue HEP more resistive and challenging. Pt would benefit from 2 scheduled appts then discuss if need to continue PT or progress on own, pt was unsure. Physical Therapy Plan Frequency and Duration Frequency of 2x/Week Treatment Plan of Care Start 09/11/24 Date Plan of Care End 11/11/24 Date Therapeutic Interventions Therapeutic Gait Training,Home Exercise Program,Joint Mobilizations Interventions ,Manual Therapy,Neuromuscular Re-education,Patient/ Caregiver Education,Self-Care/Home Management,Soft Tissue Mobilization,Taping,Therapeutic Activities, Therapeutic Exercises Modalities Cold Pack/Ice Massage,Hot Packs,Ultrasound Next Visit Focus/Plan Next Note Type Treatment Note Next Visit Plan 2 more visits left, pt thinks might be ready to continue on own. Next: continue hip abd & IR strengthening, review her self lunge into SLS HK and SLS RDL and more challenging strength class like. My only need 2 more tx scheduled. POC: STM, Hip strengthening
--- NOTE | 2024-10-22 16:06 | PT.OTN ---
Addendum entered and electronically signed by Connor Roberson, PT 10/22/24 16:08: PT direct supervision and direction to student PT Reynaldo Flores throughout session Original Note: Current Diagnoses Pain in right hip (10/22/24) Pain in left hip (10/22/24) Physical Therapy Treatment Note PT-OP-A Visit Information Start: 07/21/24 15:56 Freq: Status: Active Protocol: Document 10/22/24 11:30 LFG (Rec: 10/22/24 11:45 LFG [id number]) Out-Patient Physical Therapy Visit Information Visit Information Visit Start Time 11:30 Visit Stop Time 12:12 Visit Number 16 Number of FARMWORKER EGG PRODUCING FARM Visits 0 Evaluation Information Evaluation Date 07/21/24 PT-OP-B Current Condition Start: 07/21/24 15:56 Freq: Status: Active Protocol: Document 07/21/24 15:15 DCW (Rec: 07/21/24 16:06 DCW [id number]) Current Condition History of Current Condition Onset Date Multi-year history Current Complaints Lateral hip pain, L>R History of Current Pt is a 64 year old female presenting with a multi-year Condition history of bilateral hip pain. Pt notes pain is very point specific on both hips, points to lateral hip just off Greater Tubercle. Notes that she has been getting cortisone injections for a few years, the last one being this past December, but it did not last, and she noted reduced effect compared to prior injections. Pt notes that her pain has been steadily worsening since December. Worst when attempting to sleep while on her side, but getting into/out of her car, getting up from sitting, and stairs all increase discomfort. feels like she has started walking funny to compensate. Has not found anything that helps with her pain. Prior Treatments and Hip X-ray: IMPRESSION: Normal pelvis Edis Valdivia M.D. on 06/19/2024 PT-OP-C Subjective Start: 07/21/24 15:56 Freq: Status: Active Protocol: Document 10/22/24 11:30 LFG (Rec: 10/22/24 12:12 LFG [id number]) OP-PT Subjective Patient Comments Patient Comments Pt reports that she likely will not schedule any more appt after her last (next) one and would like to see how her body responds without PT for awhile. Still active in strength classes and cycling. PT-OP-F Manual Assessment Start: 07/21/24 15:56 Freq: Status: Active Protocol: Document 09/11/24 11:30 DCW (Rec: 09/11/24 11:47 DCW [id number]) Manual Assessments Soft Tissue Assessment Soft Tissue Mobility Bilateral point-specific pain over GT Bursae, along Assessment with tenderness to palpation 2/4: pain with wincing along bilateral ITB Joint Mobility Assessment Joint Mobility Very good passive hip mobility bilaterally Assessment PT-OP-L Special Tests Start: 07/21/24 15:56 Freq: Status: Active Protocol: Document 09/11/24 11:30 DCW (Rec: 09/11/24 11:47 DCW [id number]) Special Tests Knee Special Tests Rock's Test Test Results Positive right PT-OP-M Strength Start: 07/21/24 15:56 Freq: Status: Active Protocol: Document 09/11/24 11:30 DCW (Rec: 09/11/24 11:47 DCW [id number]) Hip Strength Hip Manual Muscle Testing Right Flexion (L2) 5 Normal Abduction 4 Good Adduction 5 Normal External Rotation 5 Normal Internal Rotation 4+ Good+ Comments Pain with resisted internal rotation Left Flexion (L2) 5 Normal Abduction 4 Good Adduction 5 Normal External Rotation 5 Normal Internal Rotation 4- Good- Comments Pain with resisted external and internal rotation PT-OP-Q Treatments Start: 07/21/24 15:56 Freq: Status: Active Protocol: Document 10/22/24 11:30 LFG (Rec: 10/22/24 12:12 LFG [id number]) Gym Equipment Shuttle Recovery Unilateral Squats Details good form/pacing Resistance 37# (One navy) Shuttle Recovery Stable Platform Reps/Time minimal cues for knee alignment, 2xLLE,1xRLE Bilateral Squats Details good form/pacing Resistance 75# (3 navy) Shuttle Recovery Stable Platform Reps/Time minimal cues for knee alignment, x2 Therapeutic Exercises Supine Exercises Piriformis Stretch Side bilateral Reps/Minutes 40 hold Standing Exercises SL Sliders Standing Exercise Single Leg sliders - extension Name Side bilateral Equipment Used slider Reps/Minutes x20 Comments Standing on LLE flared/aggrevated her hip sxs Hip Abduction Standing Exercise Hip Abduction Name Side bilateral Resistance TB #2 at ankles Equipment Used mat table for support PRN Reps/Minutes x20-30 Comments cues for knee bend Hip Extension Standing Exercise Hip Extension Name Side bilateral Resistance Tb #2 at ankles Equipment Used mat table for support PRN Reps/Minutes x20 Comments improved postural correction Self-Care/Home Management Treatment Education Patient Education Home Exercise Program Other Education HEP narrowed down to x5-6 exercise per pt request. Pt asked if she should avoid any exercises that may flare up her sxs. Told to not avoid anything in particular but avoid/stop doing anything where she feels sxs flare up. PT-OP-R Modalities Start: 07/24/24 16:05 Freq: Status: Active Protocol: Document 08/06/24 10:48 SP (Rec: 08/06/24 11:49 SP Laptop) Iontophoresis Treatment Left Lateral Hip Treatment Medication DC 07/30/24 PT-OP-T Assessment and Plan Start: 07/21/24 15:56 Freq: Status: Active Protocol: Document 10/22/24 11:30 LFG (Rec: 10/22/24 12:12 LFG [id number]) Physical Therapy Assessment Goals Three Impairment Pt unable to fully participate in yoga class due to hip pain Occupational Medicine Specialist Goal (LTG) Pt to indicate that she is able to tolerate all stretches through her yoga class for four sessions in order to demonstrate return to prior functional level. 10/15/24: progressing: Yoga classes ended for summer, perform home remember, only pain with ITB stretch with strap. Reviewed in PT cued smaller range, less time hold 15 tolerant. LTG Duration 11/11/24 Two Impairment Pain limits pt's sleep on majority of nights Occupational Medicine Specialist Goal (LTG) Pt to report ability to sleep through the night unrestricted by hip pain on at least five nights a week . 10/15/24: progressing: pain comes and goes, approx 2 nights a week wakes due to pain. LTG Duration 11/11/24 progressing 10/15/24 One Impairment Pt does not have an appropriate home exercise program Short Term Goal (STG Pt to be independent and compliant with an appropriate ) HEP 10/15/24: HEP reports YOga ex can remember onTV, aerobic dance class, walk and weight ex learned in PT 2-3 a week. STG Duration 08/21/24 progressing 10/15/24 Assessment Summary Assessment Patient responded to increased resistance well demonstrating good form throughout the session with minimal cues. Per pt request her HEP was modified/ narrowed down to 5/6 exercises. Seems to be ready to try HEP and continue her regular exercises and activities without PT for awhile. Recommend rechecking objectives tests/measures for her next and last visit. Physical Therapy Plan Frequency and Duration Frequency of 2x/Week Treatment Plan of Care Start 09/11/24 Date Plan of Care End 11/11/24 Date Therapeutic Interventions Therapeutic Gait Training,Home Exercise Program,Joint Mobilizations Interventions ,Manual Therapy,Neuromuscular Re-education,Patient/ Caregiver Education,Self-Care/Home Management,Soft Tissue Mobilization,Taping,Therapeutic Activities, Therapeutic Exercises Modalities Cold Pack/Ice Massage,Hot Packs,Ultrasound Next Visit Focus/Plan Next Note Type Treatment Note Next Visit Plan 1 visit left, pt thinks might be ready to continue on own. Review new HEP, Recheck objective tests/measures. POC: STM, Hip strengthening
--- NOTE | 2024-10-29 12:05 | PT.OTN ---
Current Diagnoses Pain in right hip (10/29/24) Pain in left hip (10/29/24) Physical Therapy Treatment Note PT-OP-A Visit Information Start: 07/21/24 15:56 Freq: Status: Active Protocol: Document 10/29/24 11:30 DCW (Rec: 10/29/24 12:02 DCW [id number]) Out-Patient Physical Therapy Visit Information Visit Information Visit Type Discharge Summary Visit Start Time 11:30 Visit Stop Time 11:57 Visit Number 17 Number of WAFER POLISHING WORKER Visits 0 Evaluation Information Evaluation Date 07/21/24 PT-OP-B Current Condition Start: 07/21/24 15:56 Freq: Status: Active Protocol: Document 07/21/24 15:15 DCW (Rec: 07/21/24 16:06 DCW [id number]) Current Condition History of Current Condition Onset Date Multi-year history Current Complaints Lateral hip pain, L>R History of Current Pt is a 64 year old female presenting with a multi-year Condition history of bilateral hip pain. Pt notes pain is very point specific on both hips, points to lateral hip just off Greater Tubercle. Notes that she has been getting cortisone injections for a few years, the last one being this past December, but it did not last, and she noted reduced effect compared to prior injections. Pt notes that her pain has been steadily worsening since December. Worst when attempting to sleep while on her side, but getting into/out of her car, getting up from sitting, and stairs all increase discomfort. feels like she has started walking funny to compensate. Has not found anything that helps with her pain. Prior Treatments and Hip X-ray: IMPRESSION: Normal pelvis Edis Valdivia M.D. on 06/19/2024 PT-OP-C Subjective Start: 07/21/24 15:56 Freq: Status: Active Protocol: Document 10/29/24 11:30 DCW (Rec: 10/29/24 12:02 DCW [id number]) OP-PT Subjective Patient Comments Patient Comments Pt notes she had a little pain while sleeping last night, but still doing better. PT-OP-F Manual Assessment Start: 07/21/24 15:56 Freq: Status: Active Protocol: Document 10/29/24 11:30 DCW (Rec: 10/29/24 11:48 DCW [id number]) Manual Assessments Soft Tissue Assessment Soft Tissue Mobility Tenderness to palpation 05/03: complaint of point- Assessment specific pain over bilateral GT Bursae PT-OP-L Special Tests Start: 07/21/24 15:56 Freq: Status: Active Protocol: Document 10/29/24 11:30 DCW (Rec: 10/29/24 11:48 DCW [id number]) Special Tests Hip Special Tests Straight Leg Raise Test Results Negative Piriformis Test Results Negative FARHAN Test Results Negative Knee Special Tests Rock's Test Test Results Negative PT-OP-M Strength Start: 07/21/24 15:56 Freq: Status: Active Protocol: Document 10/29/24 11:30 DCW (Rec: 10/29/24 11:48 DCW [id number]) Hip Strength Hip Manual Muscle Testing Right Flexion (L2) 5 Normal Abduction 5 Normal Adduction 5 Normal External Rotation 5 Normal Internal Rotation 5 Normal Left Flexion (L2) 5 Normal Abduction 5 Normal Adduction 5 Normal External Rotation 5 Normal Internal Rotation 5 Normal Comments Pain with resisted internal rotation PT-OP-Q Treatments Start: 07/21/24 15:56 Freq: Status: Active Protocol: Document 10/29/24 11:30 DCW (Rec: 10/29/24 12:02 DCW [id number]) Manual Therapy Treatment Other Other Manual Testing Treatments PT-OP-R Modalities Start: 07/24/24 16:05 Freq: Status: Active Protocol: Document 08/06/24 10:48 SP (Rec: 08/06/24 11:49 SP Laptop) Iontophoresis Treatment Left Lateral Hip Treatment Medication DC 07/30/24 PT-OP-T Assessment and Plan Start: 07/21/24 15:56 Freq: Status: Active Protocol: Document 10/29/24 11:30 DCW (Rec: 10/29/24 12:02 DCW [id number]) Physical Therapy Assessment Impairments Impairments Functional Activities,Functional Mobility,Pain,Soft Tissue Mobility,Strength,Tone Goals Three Impairment Pt unable to fully participate in yoga class due to hip pain Jail Goal (LTG) Pt to indicate that she is able to tolerate all stretches through her yoga class for four sessions in order to demonstrate return to prior functional level. 10/15/24: progressing: Yoga classes ended for summer, perform home remember, only pain with ITB stretch with strap. Reviewed in PT cued smaller range, less time hold 15 tolerant. LTG Duration 11/11/24 Two Impairment Pain limits pt's sleep on majority of nights Jail Goal (LTG) Pt to report ability to sleep through the night unrestricted by hip pain on at least five nights a week . 10/15/24: progressing: pain comes and goes, approx 2 nights a week wakes due to pain. LTG Duration Met One Impairment Pt does not have an appropriate home exercise program Short Term Goal (STG Pt to be independent and compliant with an appropriate ) HEP 10/15/24: HEP reports YOga ex can remember onTV, aerobic dance class, walk and weight ex learned in PT 2-3 a week. STG Duration Met Assessment Summary Assessment Pt has largely met all goals, feels comfortable with independent HEp. Planning to return to yoga classes. Notes some lingering hip discomfort L>R, but overall, happy with current function. Pt agreeable to discharge at this time, understands that she will require a new referral in order to return in the future. Physical Therapy Plan Frequency and Duration Frequency of 2x/Week Treatment Plan of Care Start 09/11/24 Date Plan of Care End 11/11/24 Date Therapeutic Interventions Therapeutic Gait Training,Home Exercise Program,Joint Mobilizations Interventions ,Manual Therapy,Neuromuscular Re-education,Patient/ Caregiver Education,Self-Care/Home Management,Soft Tissue Mobilization,Taping,Therapeutic Activities, Therapeutic Exercises Modalities Cold Pack/Ice Massage,Hot Packs,Ultrasound Next Visit Focus/Plan Next Note Type Treatment Note Next Visit Plan 1 visit left, pt thinks might be ready to continue on own. Review new HEP, Recheck objective tests/measures. POC: STM, Hip strengthening
== END 2024-11-03 09:46 | disposition home or self-care (01) ==
LOC: PHYS 11:30
PROVIDERS: Family Provider Family Medicine; PCP Family Medicine; Referring Provider Family Medicine; Visit Provider Family Medicine
DX: M25.551 Pain in right hip (principal); M25.552 Pain in left hip
CPT/HCPCS: 97110; 97112; 97140; 97161; 97530; 97535

== ENCOUNTER → 2024-11-17 13:14 | Outpatient (CLI) | payer OTHER, SELFPAY ==
[2024-11-18 09:09] LABS: Rubeola Measles IgG > 300.0 AU/mL (Immune >16.4)
== END ==
PROVIDERS: Family Provider Family Medicine; PCP Family Medicine; Referring Provider Family Medicine; Visit Provider Family Medicine
DX: Z01.84 Encounter for antibody response examination (principal)
CPT/HCPCS: 36415; 86735; 86762; 86765

== ENCOUNTER → 2025-02-04 08:29 | Outpatient (CLI) | payer OTHER, SELFPAY ==
--- NOTE | 2025-02-04 08:31 | DI.MG.S_ITS ---
MM screening mammo BI: 02/04/2025. BI-RADS: 1 CLINICAL: 64-year old female for bilateral screening mammogram. Tyrer-Cuzick lifetime risk of 7.6%. No personal or first-degree family history of breast cancer. Current reported family history of breast cancer: paternal grandmother. PRIOR EXAMS 01/29/2024, 01/25/2023, 12/19/2021, 12/01/2020. MAMMOGRAPHY TECHNIQUE: 2D and 3D (tomosynthesis) digital mammographic views obtained, with additional images as needed for full coverage. Current study was also evaluated with a Computer Aided Detection (CAD) system. DENSITY B. There are scattered areas of fibroglandular density. MAMMOGRAPHY FINDINGS Bilateral: No suspicious mass, asymmetry, microcalcification, or other abnormality seen. IMPRESSION: * No evidence of malignancy. RECOMMENDATIONS Bilateral * Annual screening mammography. OVERALL ASSESSMENT CATEGORY BI-RADS-1: Negative. The [employer] recommends annual screening mammography beginning at age 40 for women with average risk of breast cancer. ELECTRONICALLY SIGNED: Belinda Huber M.D. on 02/09/2025 at 12:55:22 PM PT Interpreting Station ID: [id number]
== END ==
LOC: MAMMO 08:30
PROVIDERS: Family Provider Family Medicine; PCP Family Medicine; Referring Provider Family Medicine; Visit Provider Family Medicine
DX: Z12.31 Encounter for screening mammogram for malignant neoplasm of breast (principal); Z80.3 Family history of malignant neoplasm of breast
CPT/HCPCS: 77063; 77067